=== PATIENT | male | born 1940 | race Caucasian/White ===

== ENCOUNTER → 2019-06-13 | Outpatient (CLI) | payer MEDICARE, SELFPAY ==
[2019-03-08 11:31] VITALS: BMI 27.6
--- NOTE | 2019-06-13 11:06 | CT_ITS ---
STUDY: CT ABDOMEN AND PELVIS WITH AND WITHOUT CONTRAST REASON FOR EXAM: Male, 78 years old. Gross hematuria, hemoptysis RADIATION DOSAGE (If Supplied By Facility): CTDIvol = ( 17.13 ) mGy, DLP = ( 2955.44 ) mGycm TECHNIQUE: Transaxial images were obtained from the dome of the diaphragm to the symphysis pubis without oral contrast. 100CC IV Isovue 300 was administered. Sagittal and coronal images were reconstructed. This study is limited. The dome of the diaphragm is out of the field of view and a CT scan of the chest is provided for the comparison. Individualized dose optimization techniques were used for this CT. COMPARISON: CT chest same day June 13, 2019, October 14, 2016 abdomen study. . FINDINGS: In the right lung base there is a visualized dense consolidation with right pleural fluid. The base the heart is out of the [id number] on the CT abdomen and pelvis portion however is demonstrated on the CT chest which shows borderline cardiac enlargement is small pericardial effusion and coronary calcifications. Although the superior aspect of the liver is out of the field of view on this study it is seen on the CT scan of the chest. On the CT scan of the chest performed the same day in the early arterial phase images there is visualization of peripheral focal hyperdense lesion which appears to be associated with arterial potentially venous structures which may represent a small vascular malformation. See image #[address] chest with contrast. This measures approximately 1.7 cm. The subsequent venous phase images show that this is just barely visualized. In addition on the CT chest there is a low attenuating cystic structure measuring 1.4 x 1.5 cm that is out of the field of view on this CT of the chest of the abdomen and pelvis. It appears to be a fairly well-circumscribed. In addition there is a cystic structure in the left hepatic lobe that measures 4.9 mm. Overall the liver appears somewhat hypodense the early arterial phase images. It appears less so on the delayed images. Normal gallbladder and extrahepatic biliary system. The spleen is partially visualized on the CT scan of the abdomen and partially seen on the comparison CT chest. Overall appears homogeneous. Normal pancreas. Normal bilateral adrenal glands. There are multiple punctate stones in the right kidney. There is a well-circumscribed right renal cyst measuring 1.4 cm. There is no evidence of hydronephrosis. Normal left kidney. The CT of the chest is also used to visualize the upper aspect of the stomach. It appears grossly normal. Normal small intestine. There is mild to moderate amount of stool in the colon. There is a tortuous appearance of the distal colon. There is non-visualization of the appendix. The aorta is partially calcified. Normal inferior vena cava. Normal retroperitoneum. The bladder is partially decompressed the wall is mildly thickened. There are prostatic calcifications. There is a small umbilical hernia containing fat. There is a left hip arthroplasty. There is well-corticated bony fragments posterior to the left acetabulum and greater trochanter. This is similar to the prior study October 14, 2016. There is calcification in the adductor muscles on the right. This likely represents prior trauma. There is degenerative change of the SI joints. There is multilevel spondylosis. There is multilevel disc space narrowing and endplate sclerosis. At the level of L2-L3 there is a broad disc osteophyte protrusion on the left side with moderate neural foramina narrowing moderate to severe central stenosis. At L3-L4 there is disc space narrowing broad disc osteophyte protrusion over the left side with moderate to severe neural foramina narrowing moderate central stenosis. At L4-L5 there is disc space narrowing and broad disc bulge facet arthropathy mild to moderate neural foramina narrowing without central stenosis. At L5-S1 there is robust osteophyte formation mild bilateral neural foraminal narrowing minimal central stenosis. CT/CT Abd/Pelvis W/WO Contrast IMPRESSION: The CT scan of the abdomen and pelvis is performed with a CT scan of the chest the same day. Both of these studies are utilized for this dictation as a portion of the upper abdomen is out of the [id number] on the dedicated CT scan of the abdomen and pelvis. There is a focal probable vascular lesion within the liver which may represent a AVM or vascular malformation. There at least 2 multiple hepatic cyst with benign-appearing features. Benign-appearing right renal cyst punctate calcifications right kidney no evidence of hydronephrosis. Mildly thick-walled appearance of the bladder could consider cystitis. Borderline enlargement of the prostate. Left hip arthroplasty Degenerative change thoracolumbar spine Right lower lobe pneumonia. Right pleural effusion. This was also described in the CT chest. Electronically Signed: Kiya Crawley MD at 15:41 EDT Tel , Service support ,
--- NOTE | 2019-06-13 11:20 | CT_ITS ---
STUDY: CT CHEST WITH CONTRAST REASON FOR EXAM: Male, 78 years old. Gross hemoptysis RADIATION DOSAGE (If Supplied By Facility): CTDIvol = ( 17.13 ) mGy, DLP = ( 2955.44 ) mGycm TECHNIQUE: Transaxial imaging was performed following intravenous administration of 100CC IV Isovue 300. Individualized dose optimization techniques were used for this CT. COMPARISON: None. FINDINGS: Mildly heterogeneous thyroid with several small hypodense nodules Lungs are mildly hyperinflated. There is dense patchy airspace disease and consolidation in the right lung base with effusion suggesting infection. Otherwise, the lungs are clear. Normal heart and pericardium. There are calcifications of the coronary arteries. Normal mediastinum. Normal hilar regions. Normal enhanced pulmonary arteries. Normal aorta arch and descending thoracic aorta. There are multi-level degenerative changes of the thoracic spine. Nonenhancing liver cyst; upper abdomen is otherwise within normal limits. CT/Chest WITH Contrast IMPRESSION: Right lower lobe airspace disease, consolidation with effusion. Findings are highly concerning for infection. Lungs are otherwise clear. Repeat chest CT is recommended in 3 months. Electronically Signed: Maico Pacheco DO at 12:50 EDT Tel , Service support ,
[2019-06-13 11:40] LABS: CREATININE FINGERSTICK 0.8 mg/dL (0.70-1.30); EGFR FINGERSTICK > 60.0000 mL/min (>60)
== END | disposition home or self-care (01) ==
PROVIDERS: Family Provider Family Medicine; PCP Family Medicine; Referring Provider Urology; Visit Provider Urology
DX: R31.0 Gross hematuria (principal); R04.2 Hemoptysis; Z87.442 Personal history of urinary calculi
CPT/HCPCS: 71260; 74178; Q9967

== ENCOUNTER → 2019-11-08 12:51 | Outpatient (CLI) | payer MEDICARE, SELFPAY ==
[2019-08-03 15:06] VITALS: BMI 26.7
--- NOTE | 2019-11-08 12:59 | ECHOCS_ITS ---
Reason For Study: CAD/ASHD Procedure This was a 2D Doppler, Color Flow transthoracic echocardiogram. The study was technically difficult. Contrast injection was performed. Exam performed in department. Left Ventricle Based upon the 2D echocardiographic and contrast enhanced images obtained there appears to be grossly normal left ventricular size, wall motion, and systolic function. The estimated ejection fraction is 65 %. No evidence for diastolic dysfunction. Right Ventricle Normal RV size. Normal systolic function. Atria Normal left atrium. Normal right atrium. No doppler evidence for ASD. Mitral Valve Mitral valve not well visualized. Tricuspid Valve The tricuspid valve is not well visualized. Aortic Valve Trisinus/trileaflet aortic valve. Normal aortic valve. Pulmonic Valve The pulmonic valve is not well visualized. Great Vessels Normal sized aortic root. Pericardium/Pleural Epicardial fat. Trivial pericardial effusion. There are no echocardiographic indications of cardiac tamponade. Medication 22 gauge I.V. with prn adaptor inserted into right arm. Diluted definity 5.0ml given slow IV push to enhance endocardial definition. MMode/2D Measurements & Calculations LVIDd: 4.1 cm IVSd: 1.1 cm Ao root diam: 3.5 cm LVIDs: 2.1 cm LVPWd: 1.1 cm FS: 49.3 % LAV(MOD-bp): 54.0 ml LA A4 area: 13.1 cm2 LA dimension(2D): 2.9 cm LAV(MOD-bp) Indexed: 24.9 ml/m2 LAV(MOD-sp2): 58.0 ml LAV(MOD-sp4): 32.7 ml RA A4 area: 11.2 cm2 Doppler Measurements & Calculations MV E max pravin: 47.0 cm/sec Lat Peak E' Pravin: 12.8 cm/sec Med Peak E' Pravin: 9.4 cm/sec MV A max pravin: 96.9 cm/sec E/E' lat: 3.7 E/E' med: 5.0 MV E/A: 0.48 Ao V2 max: 147.6 cm/sec LV V1 max: 124.7 cm/sec PA V2 max: 132.7 cm/sec Ao max P.7 mmHg LV V1 max P.2 mmHg Ao V2 mean: 116.6 cm/sec Ao mean P.8 mmHg Ao V2 VTI: 25.2 cm Interpretation Summary The study was technically difficult. Contrast injection was performed. Based upon the 2D echocardiographic and contrast enhanced images obtained there appears to be grossly normal left ventricular size, wall motion, and systolic function. The estimated ejection fraction is 65 %. Epicardial fat. Trivial pericardial effusion. There are no echocardiographic indications of cardiac tamponade. No evidence for diastolic dysfunction. Ordering Physician: Dragan Maher Referring Physician: Kathleen Wolfe Performed By: Jessica Grubbs RDCS, RVT
== END ==
PROVIDERS: Family Provider Family Medicine; PCP Family Medicine; Referring Provider Internal Medicine Cardiovascular Disease; Visit Provider Internal Medicine Cardiovascular Disease
DX: I25.10 Atherosclerotic heart disease of native coronary artery without angina pectoris (principal); I31.3 Pericardial effusion (noninflammatory)
CPT/HCPCS: 93306; Q9957; A4216; C8929

== ENCOUNTER → 2019-11-15 13:03 | Outpatient (CLI) | payer MEDICARE, SELFPAY ==
[2019-08-03 15:06] VITALS: BMI 26.7
--- NOTE | 2019-11-15 13:10 | CT_ITS ---
STUDY: CT CHEST WITH CONTRAST REASON FOR EXAM: Male, 79 years old. PNEUMONIA F/U COMPARE TO CT FROM 06/13/19 RADIATION DOSAGE (If Supplied By Facility): CTDIvol = ( 13.25 ) mGy, DLP = ( 471.92 ) mGycm TECHNIQUE: Transaxial imaging was performed following intravenous administration of IV 100mL Isovue-300. Multiplanar coronal and sagittal images were reformatted. Individualized dose optimization techniques were used for this CT. COMPARISON: Comparison is made with prior examination of June 13, 2019. FINDINGS: There is a 2.4 cm nodule in the left axillary region most likely representing an enlarged left axillary lymph node. This has increased in size as compared to prior study. The previously seen infiltration and pleural effusion at the right lung base as cleared. Minimal residual increased markings are seen at the lung bases suggestive of mild scarring. There is no demonstrated pleural abnormality. There are calcifications of the coronary arteries. There are multiple small lymph nodes within the mediastinum, which are normal in size and morphology most compatible with reactive lymph hyperplasia. Normal hilar regions. Normal enhanced pulmonary arteries. Normal aorta arch and descending thoracic aorta. There are multi-level degenerative changes of the thoracic spine. Small hiatal hernia. Fatty infiltration of the liver. 1.3 cm cyst in the dome of the right lobe of the liver CT/Chest WITH Contrast IMPRESSION: Enlarged left axillary lymph node. The previously seen right lower lobe infiltrate has cleared. Electronically Signed: Jared Lang, at 15:37 EST , Service support ,
[2019-11-15 13:35] LABS: CREATININE FINGERSTICK 1.1 mg/dL (0.70-1.30); EGFR FINGERSTICK > 60.0000 mL/min (>60)
== END ==
PROVIDERS: PCP Family Medicine; Referring Provider Family Medicine; Visit Provider Family Medicine
DX: J18.9 Pneumonia, unspecified organism (principal); R91.8 Other nonspecific abnormal finding of lung field
CPT/HCPCS: 71260; Q9967

== ENCOUNTER → 2019-11-28 07:50 | Outpatient (CLI) | payer MEDICARE, SELFPAY ==
[2019-08-03 15:06] VITALS: BMI 26.7
--- NOTE | 2019-11-28 07:56 | US_ITS ---
STUDY: SUPERFICIAL ULTRASOUND - LEFT AXILLARY LYMPH NODE. REASON FOR EXAM: Male, 79 years old. Follow-up lymph nodes seen on CT chest of 11/15/2019. TECHNIQUE: A superficial ultrasound was performed with real-time and static sandra-scale imaging. COMPARISON: CT chest with contrast 11/15/2019. FINDINGS: Solid hypoechoic lymphadenopathy in the left axilla is again identified. It measures 2.4 x 1.7 x 1.1 cm. My measurement of the previous lymphadenopathy is 2.8 x 2.3 x 1.9 cm. US/Ext Non Vasc Limited/Soft Tiss IMPRESSION: Persistent solid hypoechoic lymphadenopathy in the left axilla measuring 2.4 x 1.7 x 1.1 cm, previously 2.8 x 2.3 x 1.9 cm. Allowing for differences in technique, this is most likely unchanged. This is quite feasible for ultrasound-guided core biopsy or ultrasound-guided FNA. Electronically Signed: Prakash Mccarty MD at 11:02 EST , Service support ,
== END ==
PROVIDERS: PCP Family Medicine; Referring Provider Family Medicine; Visit Provider Family Medicine
DX: R59.0 Localized enlarged lymph nodes (principal)
CPT/HCPCS: 76882

== ENCOUNTER → 2020-01-23 16:25 | Outpatient (CLI) | payer MEDICARE, SELFPAY ==
--- NOTE | 2020-01-23 | IMM_PTH ---
PATIENT: ASHLEY RAYA Jr. LOC: [facility] U#:[id number] AGE/SX: 84/M ROOM: RE01/23/[address]: Dr. Neeraj Narvaez MD : 1940 BED: DIS: SPEC #: [id number] RECD: 01/25/20 11:11 STATUS: NILSA REQ #: [id number] REE: 01/23/20 00:[address]: Neeraj Narvaez DEPT: IMMUNOHISTOCHEMISTRY RECD BY: Zahra Meyers ENTERED: 01/25/20 11:14 SP TYPE: IMMUNO OTHR DR: Dr. Kathleen Wolfe DO Tissues: Axillary lymph node, NOS Procedures: BCL-2 (add) BCL-6 (add) CD10 (add) CD20 (add) CD23 (add) CD3 (add) CD43 (add) CD45 (add) CD5 (add) CD79A (add) CK8 (add) CYCLIN (add) KI-67 (add) MUM1 (add) Pankeratin (initial) PHYSICIAN & [address] [address] SPECIMEN INFORMATION: Tissue Source: Left axilla lymph node biopsy Clinical Info: Axillary lymphadenopathy Specimen Number: [id number] CPT code: 61606, 55969 x14 METHODOLOGY: Deparaffinized sections of prefer/formalin-fixed tissue or PAP/DQ stained slides are incubated with monoclonal/polyclonal antibodies/oligonucleotide probes. Localization is made via biotin free immunoperoxidase method. Appropriate controls are performed and reacted as expected. Results on target cell population are indicated in the following table: RESULTS: ANTIBODY / CLONE RESULT AE1-3 (AE1/AE3/PCK26) negative CK8 ([id number]) negative CD3 (PS1) negative CD5 (SP10) negative CD10 (56C6) positive CD20 (L26) positive CD23 (1B12) negative CD43 (L60) negative CD45 (RP2/18) positive CD79a (11E3) positive BCL-2 (bcl-2/100/D5) positive BCL-6 ([id number]/A8) positive Cyclin D1/BCL-1 (SP4) negative MUM1 (MRQ-43) negative Ki-67 (30-9) positive, moderate These tests were developed and their performance characteristics determined by [facility]. They may not have been cleared or approved by the U.S. Food and Drug Administration. The FDA has determined that such clearance or approval is not necessary. The above immunohistochemical/dualISH markers are ordered and reviewed by the Pathologist. 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 SJ:mauricio 01/26/20 Case has been reviewed in consultation with Dr. Stovall who concurs with the above diagnosis. IDC:AM
--- NOTE | 2020-01-23 13:05 | AXNB_PTH ---
PATIENT: ASHLEY RAYA Jr. LOC: [facility] U#:[id number] AGE/SX: 84/M ROOM: RE01/23/[address]: Dr. Neeraj Narvaez MD : 1940 BED: DIS: SPEC #: [id number] RECD: 01/23/20 15:47 STATUS: NILSA REQ #: [id number] REE: 01/23/20 13:[address]: Neeraj Narvaez DEPT: SURGICAL PATHOLOGY RECD BY: Aung Scott ENTERED: 01/24/20 10:20 SP TYPE: AX NODE BX OTHR DR: Dr. 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 See microscopic description and comment. SARA:mauricio 01/25/20 COMMENT Immunohistochemistry ([id number]) supports the above diagnosis. Case has been reviewed in consultation with Dr. Stovall who concurs with the above diagnosis. IDC:AM MICROSCOPIC DESCRIPTION Slides are reviewed. The specimen shows lymph tissue with complete replacement by normal lymph node architecture into multiple follicles. The follicles predominantly consist of small cleaved lymphocytes (centrocytes). Atypical large lymphocytes consists of <5 per high power field. Areas of necrosis or fibrosis are not seen. GROSS DESCRIPTION Received in fixative is one container labeled with the patient's name and designated left axillary lymph node biopsy. The specimen consists of multiple elongated pieces of guerrero soft tissue measuring in aggregate 2 x 0.3 x 0.1 cm. The specimen is totally submitted in one cassette. / SARA:mauricio 01/24/20 TC:0 CPT: 53235
[2020-01-23 13:07] VITALS: BMI 27.9
== END ==
PROVIDERS: PCP Family Medicine; Referring Provider Surgery; Visit Provider Surgery
DX: R59.0 Localized enlarged lymph nodes (principal)
CPT/HCPCS: 88305; 88341; 88342

== ENCOUNTER → 2020-10-15 07:02 | Outpatient (CLI) | payer MEDICARE, SELFPAY ==
[2020-05-10 10:59] VITALS: BMI 28.4
[2020-10-04 13:35] VITALS: BMI 28.2
--- NOTE | 2020-10-15 07:10 | CT_ITS ---
STUDY: CT ABDOMEN AND PELVIS WITH CONTRAST REASON FOR EXAM: Male, 80 years old. LYMPHOMA CHECK UP, NO TREATMENT DONE, PREV LT THR RADIATION DOSAGE (If Supplied By Facility): CTDIvol = ( 16.88 ) mGy, DLP = ( 1855.99 ) mGycm TECHNIQUE: Transaxial images were obtained from the dome of the diaphragm to the symphysis pubis without oral contrast. IV 100mL Isovue-300 was administered. Sagittal and coronal images were reconstructed. Individualized dose optimization techniques were used for this CT. COMPARISON: 02/06/2020 FINDINGS: The visualized lung bases are unremarkable. The visualized portions of the heart are within normal limits. Multiple cysts are seen in the liver the largest is in segment #8 near the dome measures 17 mm. Normal gallbladder and extrahepatic biliary system. Normal spleen. Normal pancreas. Normal bilateral adrenal glands. Bilateral kidney stones, there is 6 mm stone in the right kidney. There is 4 mm stone in left kidney without hydronephrosis. There is a cyst in the right kidney measures 2 cm. Normal visualized stomach. Normal small intestine. Normal colon. There is non-visualization of the appendix. Normal abdominal aorta. Normal inferior vena cava. There is an enlarged mesenteric lymph node in the right lower quadrant measuring 3.4 x 3.2 cm stable since earlier study. Normal urinary bladder. Normal abdominal wall. Normal osseous structures. CT/Abdomen/Pelvis W IV Cont ONLY IMPRESSION: Bilateral kidney stones, there is 6 mm stone in the right kidney. There is 4 mm stone in left kidney without hydronephrosis. There is a cyst in the right kidney measures 2 cm. There is an enlarged mesenteric lymph node in the right lower quadrant measuring 3.4 x 3.2 cm stable since earlier study. Electronically Signed: Kash Caro, at 13:46 EST Tel , Service support ,
--- NOTE | 2020-10-15 07:10 | CT_ITS ---
STUDY: CT CHEST WITH CONTRAST REASON FOR EXAM: Male, 80 years old. LYMPHOMA CHECK UP, NO TREATMENT DONE, PREV LT THR RADIATION DOSAGE (If Supplied By Facility): CTDIvol = ( 16.88 ) mGy, DLP = ( 1855.99 ) mGycm TECHNIQUE: Transaxial imaging was performed following intravenous administration of IV 100mL Isovue-300. Individualized dose optimization techniques were used for this CT. COMPARISON: 02/06/2020 FINDINGS: The lungs are normal. There is no demonstrated pleural abnormality. Normal heart and pericardium. Normal mediastinum. Normal hilar regions. Normal enhanced pulmonary arteries. Normal aorta arch and descending thoracic aorta. Normal osseous structures. There is decrease in the size of the previously described enlarged left axillary lymph node now measures 2 x 0.9 cm measured previously 2.8 x 1.9 cm. No new enlarged lymph nodes are noted. CT/Chest WITH Contrast IMPRESSION: There is decrease in the size of the previously described enlarged left axillary lymph node now measures 2 x 0.9 cm measured previously 2.8 x 1.9 cm. No new enlarged lymph nodes are noted. Electronically Signed: Kash Caro, at 14:02 EST Tel , Service support ,
[2020-10-15 07:30] LABS: Creatinine, Serum 1.06 mg/dL (0.70-1.30); EST Glomerular Filtration Rate 72 mL/min (>60); Est Glom Filt Rate - Afr Amer 87 mL/min (>60)
--- NOTE | 2020-10-15 07:38 | CT_ITS ---
STUDY: CT SOFT TISSUE NECK WITH CONTRAST REASON FOR EXAM: Male, 80 years old. LYMPHOMA CHECK UP, NO TREATMENT DONE, PREV LT THR RADIATION DOSAGE (If Supplied By Facility): CTDIvol = ( 16.88 ) mGy, DLP = ( 1855.99 ) mGycm TECHNIQUE: The patient was scanned in a multi-detector CT scanner. High resolution transaxial imaging was performed following intravenous administration of IV 100mL Isovue-300. Sagittal and coronal images were reconstructed. Individualized dose optimization techniques were used for this CT. COMPARISON: 02/06/2020. 06/13/2019 FINDINGS: Normal bilateral parotid glands. Normal bilateral real estate associate spaces. Normal bilateral parapharyngeal spaces. Normal bilateral carotid spaces. Normal bilateral sublingual and submandibular glands and spaces. Normal visualized nasopharynx. Normal retropharyngeal space. Normal perivertebral space. Normal visualized bilateral faucial tonsils. The visualized tongue, tongue base and oropharynx are normal. The visualized cervical lymph nodes (levels I-) are within normal size limits, and maintain normal morphology. There is no demonstrated solid or cystic mass lesion. There is no abnormal contrast enhancement. Normal epiglottis, bilateral vallecula and hypopharynx. The pre-epiglottic and paraglottic adipose spaces are normal. Normal visualized bilateral piriform sinuses, aryepiglottic folds, vocal cords, and arytenoid-cricoid articulations. Normal subglottic trachea. There is a nonspecific nodule in the right thyroid lobe measures 1.8 cm is stable since 06/13/2019. Normal visualized pulmonary apices. Normal visualized paranasal sinuses. Normal visualized cervical spine. CT/Soft Tissue Neck WITH Contrast IMPRESSION: There is no evidence of active neoplastic process in the soft tissues of the neck. There is a nonspecific nodule in the right thyroid lobe measures 1.8 cm is stable since 06/13/2019. Electronically Signed: Kash Caro, at 13:49 EST Tel , Service support ,
== END ==
PROVIDERS: PCP Family Medicine; Referring Provider Internal Medicine Hematology & Oncology; Visit Provider Internal Medicine Hematology & Oncology
DX: C82.00 Follicular lymphoma grade I, unspecified site (principal); C82.08 Follicular lymphoma grade I, lymph nodes of multiple sites
CPT/HCPCS: 36415; 70491; 71260; 74177; 82565; Q9967

== ENCOUNTER → 2021-04-09 06:01 | Outpatient (CLI) | payer MEDICARE, SELFPAY ==
[2021-04-03 08:29] VITALS: BMI 28.9
--- NOTE | 2021-04-09 06:06 | ART_ITS ---
Reason For Study: Claudication Procedure A bilateral lower extremity continuous wave Doppler with analog waveform analysis,segmental pressures,and ankle brachial indexes without exercise. Left Segmental Pressures Left brachial= 156mmHg. Left posterior tibial artery = 194mmHg. Left dorsalis pedis artery = 180mmHg. Left digit = 159 mmHg. The left dorsalis pedis waveforms are triphasic. The left posterior tibial artery waveforms are triphasic. Right Segmental Pressures Right brachial= 156mmHg. Right posterior tibial artery = 192mmHg. Right dorsalis pedis artery = 180mmHg. Right digit = 181 mmHg. The right dorsalis pedis waveforms are triphasic. The right posterior tibial artery waveforms are triphasic. Indices The right ankle brachial index by the dorsalis pedis is 1.15. The right ankle brachial index by the posterior tibial artery is 1.23. The right digital-brachial index is 1.16. The left ankle brachial index by the dorsalis pedis is 1.15. The left ankle brachial index by the posterior tibial artery is 1.24. The left digital-brachial index is 1.02. VL/Lower Ext Art Exam w/o Exercis Interpretation Summary Normal bilateral lower extremity DP and PT ankle-brachial indices with triphasi c dorsalis pedis and posterior tibialis Doppler waveforms Normal digital brachial indices bilaterally Ordering Physician: Ute Jones Referring Physician: Kathleen Wolfe Performed By: Denise Miller RVT
--- NOTE | 2021-04-09 07:40 | STRESSREP_ITS ---
Stress Test Report Date: 04-09-2021 Procedure: Exercise tolerance test/imaging study Indications: Chest pain; CAD; PCI Consent: Per the patient Procedure: The patient exercised on a Zafar protocol for 4 minutes and 30 seconds completing Stage I and 1 minute and 30 seconds of Stage II achieving a peak heart rate of 134 bpm (95% predicted maximal heart rate) with a peak blood pressure 178/82 mmHg and a peak MET capacity of 6 METs. The baseline ECG demonstrated sinus rhythm; right bundle branch block. The peak exercise ECG demonstrated no obvious ECG changes. There was an isolated premature ectopic complex during exercise. The functional capacity was considered average. There was no complaint of chest discomfort during exercise or recovery. The examination was discontinued secondary to dyspnea/knee pain. Impression: 1. Technically adequate (percent predicted maximal heart rate greater than 85%) exercise tolerance test 2. Peak exercise ECG continued right bundle branch block with no obvious ECG changes 3. There was an isolated premature ectopic complex during exercise 4. Nuclear images pending Myocardial perfusion imaging study: Technique: The patient was injected with 14.2 mCi of technetium 99m Cardiolite and subsequently rest SPECT Cardiolite nuclear imaging was obtained in the horizontal long, vertical long, and short axis views. The patient exercised on a Zafar protocol for 4 minutes and 30 seconds completing Stage I and 1 minute and 30 seconds of Stage II achieving a peak heart rate of 134 bpm (95% predicted maximal heart rate) with a peak blood pressure 178/82 mmHg and a peak MET capacity of 6 METs. The patient was injected with 44.4 mCi of technetium 99m Cardiolite and subsequently stress SPECT Cardiolite nuclear imaging was obtained in the horizontal long, vertical long, and short axis views. A gated Cardiolite study at peak stress was obtained. Interpretation: Rest and stress SPECT Cardiolite nuclear imaging status post realignment, normalization, and attenuation correction, demonstrates the appearance of body motion during image acquisition and on the preattenuation images following stress the appearance of diminished myocardial perfusion/tracer uptake in portions of the mid to distal inferior/inferior apical segments and on the post attenuation images following stress the appearance of diminished myocardial perfusion/tracer uptake in portions of the distal inferior/inferoapical segments. There is end systolic thickening and brightening. The gated Cardiolite study demonstrates myocardial thickening and inward wall motion. The reported LVEF is 78%. Impression: 1. Rest and stress SPECT Cardiolite nuclear imaging demonstrate the appearance of body motion during image acquisition and post-rest the appearance of diminished myocardial perfusion/tracer uptake in portions of the inferior/inferior apical segments concerning for an area of stress-induced myocardial ischemia although shifting soft tissue attenuation/artifact related to body motion during image acquisition cannot necessarily be excluded. 2. The gated Cardiolite study reports an LVEF of 78%. This note was generated with [employer] software. It may contain incorrect words, spelling, and punctuation that were not noted in checking the note before signing.
== END ==
PROVIDERS: PCP Family Medicine; Referring Provider Physician Assistant Medical; Visit Provider Physician Assistant Medical
DX: R07.9 Chest pain, unspecified (principal); I73.9 Peripheral vascular disease, unspecified
CPT/HCPCS: 78452; 93017; 93923; A9500; A4216

== ENCOUNTER → 2021-04-16 12:43 | Outpatient (CLI) | payer MEDICARE, SELFPAY ==
[2021-01-21 13:57] VITALS: BMI 28.9
[2021-04-03 08:29] VITALS: BMI 28.9
--- NOTE | 2021-04-16 12:45 | CT_ITS ---
STUDY: CT CHEST WITH CONTRAST REASON FOR EXAM: Male, 80 years old. LYMPHOMA. Follow-up examination. RADIATION DOSAGE (If Supplied By Facility): CTDIvol = ( 15.62 ) mGy, DLP = ( 1850.55 ) mGycm TECHNIQUE: Transaxial imaging was performed following intravenous administration of IV 100mL Isovue-300. Multiplanar coronal and sagittal images were reformatted. Individualized dose optimization techniques were used for this CT. COMPARISON: Comparison is made with prior examination dated 10/15/2020. FINDINGS: Stable heterogeneous enlargement of the right lobe of the thyroid gland. Small benign-appearing lateral axillary lymph nodes. The lungs are normal. There is no demonstrated pleural abnormality. There are calcifications of the coronary arteries. There are multiple small lymph nodes within the mediastinum, which are normal in size and morphology most compatible with reactive lymph hyperplasia. Normal hilar regions. Normal enhanced pulmonary arteries. Normal aorta arch and descending thoracic aorta. There are multi-level degenerative changes of the thoracic spine. There is no demonstrated abnormality of the visualized upper abdomen. CT/Chest WITH Contrast IMPRESSION: Interval decrease in size of the left axillary lymph node. Electronically Signed: Jared Lang MD at 15:11 EDT , Service support ,
--- NOTE | 2021-04-16 12:45 | CT_ITS ---
STUDY: CT ABDOMEN AND PELVIS WITH CONTRAST REASON FOR EXAM: Male, 80 years old. LYMPHOMA. Follow-up. RADIATION DOSAGE (If Supplied By Facility): CTDIvol = ( 15.62 ) mGy, DLP = ( 1850.55 ) mGycm TECHNIQUE: Transaxial images were obtained from the dome of the diaphragm to the symphysis pubis without oral contrast. IV 100mL Isovue-300 was administered. Sagittal and coronal images were reconstructed. Individualized dose optimization techniques were used for this CT. COMPARISON: Comparison is made with prior examination dated 10/15/2020. FINDINGS: Stable mild degree of linear scarring at the lung bases. Coronary artery calcification. Stable 1.27 m cyst in the upper medial aspect of the right lobe of the liver. Questionable sludge or tiny gallstones along the dependent portion of the gallbladder lumen. Normal spleen. Normal pancreas. Normal bilateral adrenal glands. Punctate calculus in the lower pole calyx of the left kidney. 6 mm calculus in the midpole calyx of the right kidney. Stable small cyst in the lateral aspect of the right kidney. Nonobstructive calculus in the lower pole calyx of the left kidney. Normal visualized stomach. Normal small intestine. Normal colon. The appendix is visualized and appears normal. There is diffuse atherosclerotic calcification of the abdominal aorta, without a demonstrated aneurysm. Normal inferior vena cava. Normal retroperitoneum. The previously seen lymph node in the mesentery in the right lower quadrant has decreased in size. It presently measures 2.2 cm x 2.2 cm. Normal urinary bladder. There are prostatic calcifications. Normal abdominal wall. There are diffuse degenerative changes of the visualized lumbar spine. Status post left total hip replacement. CT/Abdomen/Pelvis W IV Cont ONLY IMPRESSION: Interval decrease in size of the lymph nodes seen in the mesenteric fat in the right lower quadrant. It presently measures 2.2 cm x 2.2 cm. Electronically Signed: Jared Lang MD at 15:07 EDT , Service support ,
--- NOTE | 2021-04-16 12:45 | CT_ITS ---
STUDY: CT SOFT TISSUE NECK WITH CONTRAST REASON FOR EXAM: Male, 80 years old. LYMPHOMA. Follow-up. RADIATION DOSAGE (If Supplied By Facility): CTDIvol = ( 15.62 ) mGy, DLP = ( 1850.55 ) mGycm TECHNIQUE: The patient was scanned in a multi-detector CT scanner. High resolution transaxial imaging was performed following intravenous administration of IV 100mL Isovue-300. Sagittal and coronal images were reconstructed. Individualized dose optimization techniques were used for this CT. COMPARISON: Comparison is made with prior examination dated 10/15/2020. FINDINGS: Normal bilateral parotid glands. 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 Normal bilateral parapharyngeal spaces. Normal bilateral carotid spaces. Normal bilateral sublingual and submandibular glands and spaces. Normal visualized nasopharynx. Normal retropharyngeal space. Normal perivertebral space. Normal visualized bilateral faucial tonsils. The visualized tongue, tongue base and oropharynx are normal. The visualized cervical lymph nodes (levels I-) are within normal size limits, and maintain normal morphology. There is no demonstrated solid or cystic mass lesion. There is no abnormal contrast enhancement. Normal epiglottis, bilateral vallecula and hypopharynx. The pre-epiglottic and paraglottic adipose spaces are normal. Normal visualized bilateral piriform sinuses, aryepiglottic folds, vocal cords, and arytenoid-cricoid articulations. Normal subglottic trachea. Mildly enlarged and heterogeneous appearance of the right lobe of the thyroid. Normal visualized pulmonary apices. Normal visualized paranasal sinuses. There is multilevel degenerative changes of the cervical spine. CT/Soft Tissue Neck WITH Contrast IMPRESSION: Stable examination. No evidence of a cervical lymphadenopathy. Electronically Signed: Jared Lang MD at 15:18 EDT , Service support ,
[2021-04-16 13:05] LABS: CREATININE FINGERSTICK 0.9 mg/dL (0.70-1.30); EGFR FINGERSTICK > 60.0000 mL/min (>60)
== END ==
PROVIDERS: PCP Family Medicine; Referring Provider Internal Medicine Hematology & Oncology; Visit Provider Internal Medicine Hematology & Oncology
DX: C82.00 Follicular lymphoma grade I, unspecified site (principal)
CPT/HCPCS: 70491; 71260; 74177; Q9967

== ENCOUNTER 2021-05-14 08:55 | Day surgery (SDC) | payer MEDICARE, SELFPAY ==
[2021-04-03 08:29] VITALS: BMI 28.9
[2021-04-30 12:57] VITALS: BMI 29.0
[2021-04-30 13:57] LABS: Hematocrit 43.7 % (40-54); Hemoglobin 14.2 g/dL (13.0-16.5); Mean Corp Hgb Conc 32.5 g/dL (32-36); Mean Corpuscular Hgb 29.4 pg (27.0-32.0); Mean Corpuscular Volume 90.5 fL (80-94); Mean Platelet Vol. 8.8 fl (6.2-12.0); Platelet Count 201 K/mm3 (150-450); RBC Distribution Width CV 15.2 % (11.6-14.6); RBC Distribution Width SD 51.3 fl (35.1-43.9); Red Blood Count 4.83 M/mm3 (4.6-6.2); White Blood Count 5.7 K/mm3 (4.4-11.0)
[2021-04-30 14:06] LABS: International Normalized Ratio 1.1; Prothrombin Time (Protime)PT. 13.4 SECONDS (11.7-14.9)
[2021-04-30 14:07] LABS: Partial Thromboplast Time 28.6 Seconds (24.1-36.2)
[2021-04-30 14:23] LABS: Anion Gap 3 (5-15); BUN 21 mg/dL (7-18); BUN/Creat Ratio 22.2 RATIO (10-20); Calcium,Total 8.8 mg/dL (8.5-10.1); Chloride 109 mmol/L (98-107); Creatinine, Serum 0.94 mg/dL (0.70-1.30); EST Glomerular Filtration Rate 82 mL/min (>60); Est Glom Filt Rate - Afr Amer 99 mL/min (>60); Glucose 101 mg/dL (74-106); Potassium 4.3 mmol/L (3.5-5.1); Sodium Level 141 mmol/L (136-145)
--- NOTE | 2021-05-06 08:45 | PCM.HP.BLA ---
History and Physical Date of Admission: 05/14/21 [facility] [id number] [place], [place] [phone] OFFICE VISITDate of Service: 04/03/21 MR#:[id number]: ASHLEY RAYA Jr.Rep #:[id number]:1940 Provider: JOSE Back/Sex: 80/M [facility]igned HPI HPI History of Present Illness Details: ASHLEY RAYA, is a 80 year old white male who presents to the office today for a cardiovascular outpatient follow-up with a history of coronary artery disease status post drug-eluting stent ?2 to proximal LAD and drug-eluting stent to proximal RCA in September 2016 and PVCs. He also has a history of lymphoma. Pt notes that he occasionally he chest discomfort. It comes and goes. It is not brought on by anything in particular. It is not always with exercise. He does find that he he is more fatigued than last year. He finds that he may be more SOB than last year. He does occasionally have lightheadedness/dizziness. He does not have any palpitations. He does have joint pain. He does not have any edema. 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: No Accompanied by: None Is patient in pain?: No Allergies No Known Allergies Allergy (Verified 04/03/21 08:25) Medications aspirin 81 mg tablet,delayed release 81 mg PO DAILY 03/08/19 [History Confirmed 04/03/21] finasteride 5 mg tablet 5 mg PO DAILY 08/03/19 [History Confirmed 04/03/21] montelukast 10 mg tablet 10 mg PO QPM 08/03/19 [History Confirmed 04/03/21] tamsulosin 0.4 mg capsule 0.8 mg PO DAILY 30 Days #60 cap 08/03/19 [History Confirmed 04/03/21] fluticasone propionate 50 mcg/actuation nasal spray,suspension 2 spray INTRANASAL DAILY 01/19/20 [History Confirmed 04/03/21] lisinopril 5 mg tablet 5 mg PO DAILY #90 tab 07/12/20 [Rx Confirmed 04/03/21] clopidogrel 75 mg tablet 75 mg PO DAILY #30 tab 09/19/20 [Rx Confirmed 04/03/21] metoprolol tartrate 25 mg tablet 25 mg PO BID #180 tab 01/01/21 [Rx Confirmed 04/03/21] atorvastatin 80 mg tablet See Rx Instructions .ROUTE .COMPLEX #90 tablet 01/22/21 [Rx Confirmed 04/03/21] albuterol sulfate 90 mcg/actuation aerosol inhaler gm INHALATION 04/03/21 [History Confirmed 04/03/21] nitroglycerin 0.4 mg sublingual tablet 0.4 mg SUBLINGUAL Q5M PRN #25 tab 04/03/21 [Rx Confirmed 04/03/21] omeprazole 40 mg capsule,delayed release 40 mg PO DAILY cap 04/03/21 [History Confirmed 04/03/21] [facility] Medical History (Updated 04/03/21 @ 09:04 by Ute GARCIA, PA) Atherosclerosis of makah coronary artery of makah heart without angina pectoris Presence of stent in coronary artery (~10/01/16) PVC (premature ventricular contraction) Right ureteral calculus Surgical History History of arthroscopic knee surgery History of left hip replacement Presence of coronary angioplasty implant and graft (~10/01/16) Family History Mother Pancreas cancer Father Lung cancer Other Cancer Social History Smoking Status: Former smoker alcohol intake: current alcohol intake frequency: 0-2 drinks per day Alcohol type: beer caffeine: Yes Type: coffee Number of servings: 3 and tea ROS Const Const: Positive for fatigue; Negative for weakness, headache(s), frequent falls, excessive sweating, weight gain or weight loss Eyes Eyes: Negative for blind spots, loss of peripheral vision, transient loss of vision, blurry vision, change in vision or double vision ENT ENT: Negative for headache(s), dizziness, tinnitus, Nosebleed/epistaxis or balance problems Cardio Chest Pain: Yes Palpitations: No Edema: None Muscle aches with walking: None Resp Respiratory: Positive for SOB with activity; Negative for SOB at rest, SOB orthopnea\SOB lying down or Cough GI GI: Negative nausea, vomiting, heartburn, bloating, vomiting blood/hematemesis, bright, red blood in stools or black,tarry stools : Negative for hematuria Musc Musc: Positive for muscle aches/ myalgia and joint pain; Negative for muscle weakness or balance problems Skin Skin: Negative rash or wounds Neuro Neuro: Negative for dizziness, lightheadedness, near syncope, syncope, orthostatic symptoms, frequent falls, headache(s), weakness, confusion, memory loss, restless legs, blurry vision or double vision Brad Hematologic/Lymphatic: Negative for easy bleeding or easy bruising Endo Endo: Positive for fatigue; Negative for cold intolerance, heat intolerance or excessive sweating Psych Psych: Negative for anxiety or depression Allergy Allergy/Immunology: Negative for rash Cardiology Exam Const Appearance: cooperative, healthy appearing, comfortable, no acute distress and well developed Orientation: alert, awake and oriented x3 Head Head: normal to inspection Ears: hearing grossly normal bilaterally Nose: external nose normal Face and Sinus: face symmetric Mouth: oral mucosae normal, lip normal and moist mucous membranes Eyes General: appearance normal, both eyes and all related structures Eyelids: eyelids normal Conjunctivae: conjunctivae normal Pupils: PERRL EOM: EOM intact bilaterally Neck Neck: normal visual inspection and trachea midline; Negative no JVD Carotids: Negative bruit Chest Chest inspection: normal inspection of the chest Auscultation: Bilateral: Clear to Auscultation Cardio Palpation: normal PMI Rate: regular rate Rhythm: regular rhythm Heart sounds: S1 normal and S2 normal; Negative rub, gallop or murmur GI GI: soft, no hepatosplenomegaly and bowel sounds present Neuro General: patient alert, patient awake, patient oriented x3 and CN's II-XI intact bilaterally Extremities Pulses: Normal: Left Posterior Tibial Pulse, Right Radial Pulse and Left Radial Pulse and Diminished: Right Posterior Tibial Pulse Lower Extremity Edema: None: Bilateral Psych Psychological: normal affect Assessment and Plan Assessment and Plan (1) Atherosclerosis of makah coronary artery of makah heart without angina pectoris: Status: Chronic Comment: S/P drug-eluting stenting to LAD and RCA in September 2016; Plan - Ute GARCIA PA: Patient does have some chest discomfort that could be concerning for angina. It has been 4 years since he has had a stress test done. Would like to obtain an nuclear exercise stress test to further evaluate for ischemia. For now he will continue with his aspirin, and atorvastatin, Plavix, lisinopril and metoprolol. (2) Claudication of both lower extremities: Status: Acute Orders: Orders: Lower Ext Art Exam w/o Exercis Today Plan - Ute GARCIA PA: Patient does note pain in his muscles when he walks. This is worsened over the last year. He does have diminished pulses in the right. Would like to obtain lower extremity arterial study to further evaluate. Plan Details Other Medications: New: nitroglycerin 0.4 mg sublingual Q5M PRN 25 tabs 3RF Chest Pain Other Orders: Orders: Nuclear Stress Test - Treadmil Today R07.9 Follow Up: 9 Months (PFM) Coding Level of Care Code Off vis,est,level 4 Diagnoses Atherosclerosis of makah coronary artery of makah heart without angina pectoris I25.10 Claudication of both lower extremities I73.9 Coding Level of Care Code Off vis,est,level 4 Diagnoses Atherosclerosis of makah coronary artery of makah heart without angina pectoris I25.10 Claudication of both lower extremities I73.9 Supplemental Info Supplemental Information Echocardiogram from 11/08/2019: Interpretation Summary The study was technically difficult. Contrast injection was performed. Based upon the 2D echocardiographic and contrast enhanced images obtained there appears to be grossly normal left ventricular size, wall motion, and systolic function. The estimated ejection fraction is 65 %. Epicardial fat. Trivial pericardial effusion. There are no echocardiographic indications of cardiac tamponade. No evidence for diastolic dysfunction. Stress Test Report: Date: 07/30/2017 Procedure: Exercise tolerance test/nuclear imaging study Indications: Shortness of breath/dyspnea; CAD; PCI; abnormal ECG Consent: Per the patient Procedure: The patient underwent exercise on a Zafar protocol for 6 minutes 30 seconds completing stage II and 30 seconds of stage III achieving a peak heart rate of 133 bpm (91% predicted maximal heart rate) with a peak blood pressure 142/84 mmHg and a peak MET capacity of approximately 8 MET's. The baseline ECG demonstrated normal sinus rhythm with a right IVCD pattern. The peak exercise ECG demonstrated somatic/motion artifact with continued right IVCD pattern. There was an isolated PVC during exercise. The functional capacity was considered average. The patient had no complaint of chest discomfort during exercise recovery. The examination was discontinued secondary to dyspnea. Impression: 1. Technically adequate (percent predicted maximal heart rate greater than 85%) exercise tolerance test 2. Peak exercise ECG was somatic/motion artifact with continued right IVCD pattern 3. Isolated PVC during exercise 4. Nuclear images pending Myocardial perfusion imaging study: Technique: The patient was injected with 14.0 mCi of technetium 99m Cardiolite and subsequently rest SPECT Cardiolite nuclear imaging was obtained in the horizontal long, vertical long, and short axis views. The patient underwent exercise on a Zafar protocol for 6 minutes 30 seconds completing stage II and 30 seconds of stage III achieving a peak heart rate of 133 bpm (91% predicted maximal heart rate) with a peak blood pressure 142/84 mmHg and a peak MET capacity of approximately 8 MET's. The patient was injected with 44.7 mCi of Retail Branch Manager 99m Cardiolite and subsequently stress SPECT Cardiolite nuclear imaging was performed in the horizontal long, vertical long, and short axis views. A gated Cardiolite study at peak stress was obtained. Interpretation: Rest and stress SPECT Cardiolite nuclear imaging status post realignment, normalization, and attenuation correction appears to demonstrate relative uniform tracer uptake and myocardial perfusion appearing within normal limits. There are no myocardial perfusion deficits appreciated on the resting or stress polar map images. There is end systolic thickening and brightening. The gated Cardiolite study demonstrates myocardial thickening and inward wall motion. The reported LVEF is 76%. Impression: 1. Rest and stress SPECT Cardiolite nuclear imaging demonstrating myocardial perfusion appearing within normal limits. 2. The gated Cardiolite study reports an LVEF of 76%. Cardiac cath: 09/30/2016 Final impression: 1. Elevated left ventricular end-diastolic pressure compatible with decreased diastolic compliance 2. Left ventricle: A. Normal left ventricular size, wall motion, and systolic function B. Estimated LVEF is 65% 3. Left main coronary artery: A. Angiographically normal 4. Left anterior descending coronary artery: A. Proximal moderate to severe diffuse calcification B. Proximal 95% hazy discrete eccentric appearing stenosis hollowed by a 25-50% eccentric appearing stenosis C. Remainder of the LAD with diffuse minimal luminal irregularities 5. Left circumflex coronary artery: A. Proximal 25-50% eccentric hazy appearing stenosis near the takeoff of the obtuse marginal branch B. Remainder of the vessel with minimal luminal irregularities 6. Intermediate ramus coronary artery: A. Minimal luminal irregularities 7. Right coronary artery: A. Large dominant vessel B. Proximal 25% eccentric appearing stenosis followed by 85% hazy long appearing stenosis C. Mid to distal 25% eccentric appearing stenosis 8. Mitral valve: A. Scalloping compatible with mild mitral valve prolapse Holter monitor from April 2016 minimum heart rate 60 bpm, maximum heart rate 112 bpm, average heart rate 88 bpm, and no ventricular runs Labs: No Data to Display Diagnostics: No Data to Display Pulmonary: No Data to Display 04/03/21 0932<Electronically signed by Ute GARCIA>Date Ute GARCIA Cosigner Signature:Date (if applicable) CC: Dr. Kathleen Wolfe, DO ~ Addendum: The patient has undergone additional evaluation with an exercise tolerance test / nuclear imaging study on 04/09/2021. The results are as noted below. [facility] [id number] [place] [address] MR#: [id number]:ASHLEY RAYA Jr.Rep #:[id number]: 1940 80From:Dragan Maher MDPrimary Care: Dr. Kathleen Wolfe, DOStatus: SARA Enrique Dr: Ute Jones PASex: Stress Test Report Date: 04-09-2021 Procedure: Exercise tolerance test/imaging study Indications: Chest pain; CAD; PCI Consent: Per the patient Procedure: The patient exercised on a Zafar protocol for 4 minutes and 30 seconds completing Stage I and 1 minute and 30 seconds of Stage II achieving a peak heart rate of 134 bpm (95% predicted maximal heart rate) with a peak blood pressure 178/82 mmHg and a peak MET capacity of 6 METs. The baseline ECG demonstrated sinus rhythm; right bundle branch block. The peak exercise ECG demonstrated no obvious ECG changes. There was an isolated premature ectopic complex during exercise. The functional capacity was considered average. There was no complaint of chest discomfort during exercise or recovery. The examination was discontinued secondary to dyspnea/knee pain. Impression: 1. Technically adequate (percent predicted maximal heart rate greater than 85%) exercise tolerance test 2. Peak exercise ECG continued right bundle branch block with no obvious ECG changes 3. There was an isolated premature ectopic complex during exercise 4. Nuclear images pending Myocardial perfusion imaging study: Technique: The patient was injected with 14.2 mCi of technetium 99m Cardiolite and subsequently rest SPECT Cardiolite nuclear imaging was obtained in the horizontal long, vertical long, and short axis views. The patient exercised on a Zafar protocol for 4 minutes and 30 seconds completing Stage I and 1 minute and 30 seconds of Stage II achieving a peak heart rate of 134 bpm (95% predicted maximal heart rate) with a peak blood pressure 178/82 mmHg and a peak MET capacity of 6 METs. The patient was injected with 44.4 mCi of technetium 99m Cardiolite and subsequently stress SPECT Cardiolite nuclear imaging was obtained in the horizontal long, vertical long, and short axis views. A gated Cardiolite study at peak stress was obtained. Interpretation: Rest and stress SPECT Cardiolite nuclear imaging status post realignment, normalization, and attenuation correction, demonstrates the appearance of body motion during image acquisition and on the preattenuation images following stress the appearance of diminished myocardial perfusion/tracer uptake in portions of the mid to distal inferior/inferior apical segments and on the post attenuation images following stress the appearance of diminished myocardial perfusion/tracer uptake in portions of the distal inferior/inferoapical segments. There is end systolic thickening and brightening. The gated Cardiolite study demonstrates myocardial thickening and inward wall motion. The reported LVEF is 78%. Impression: 1. Rest and stress SPECT Cardiolite nuclear imaging demonstrate the appearance of body motion during image acquisition and post-rest the appearance of diminished myocardial perfusion/tracer uptake in portions of the inferior/inferior apical segments concerning for an area of stress-induced myocardial ischemia although shifting soft tissue attenuation/artifact related to body motion during image acquisition cannot necessarily be excluded. 2. The gated Cardiolite study reports an LVEF of 78%. This note was generated with [employer] dictation software. It may contain incorrect words, spelling, and punctuation that were not noted in checking the note before signing. 04/09/21 0856<Electronically signed by Dragan Maher MD>Date Dragan Maher MD CC: JOSE Jones; Dr. Kathleen Wolfe, DO ~Date Dictated:04/09/2140Date Transcribed: 04/09/21739Transcriptionist:Kory Based upon the patient's clinical course and the results of his noninvasive study further evaluation with diagnostic cardiac catheterization was recommended. The procedures and risks were discussed. He agreed to this approach. The surgeon/proceduralist and patient have discussed in detail the risk of exposure to and/or potential harm posed by the COVID-19 virus with having a surgery/procedure at this time versus the risk of delaying the surgery/procedure. It is not possible to know either the risk of delaying the surgery or procedure or chance of getting an infection with perfect accuracy, but a joint decision was made between the patient and the surgeon/proceduralist to proceed at this time with the scheduled surgery/procedure as indicated on the consent form. I have re-examined the patient. There are no clinical changes since date of exam.
[2021-05-13 09:39] VITALS: BMI 28.7
--- NOTE | 2021-05-14 11:28 | CL.D_ITS ---
Patient Name: ASHLEY RAYA Study Date: 05/14/2021 Performing: Dragan Maher MD Ht: 72.04 inches 183 cm : 1940 Wt: 211.64 lbs 96 kg Age: 80 Gender: male BSA: 2.18 PROCEDURE(S) PERFORMED IL66-MNS/COR/LV CLINICAL PROFILE AND INDICATIONS Indications: Suspected CAD Heart Failure: None Stress/Imaging Date: 04/09/2021tress Test with SPECT MPI: Positive Intermediate Risk Angina Classification Anginal Classification w/in 2 Weeks: Anginal Equivalent Dyspnea CAD Presentations: Other: chest pain; dyspnea on exertion; fatigue CONCLUSIONS Elevated Left Ventricular End Diastolic Pressure Normal LV size, wall motion,and systolic function LVEF: by LV gram 65 % [place] Multivessel CAD LAD: stent: patent LCX: c/w the previous cardiac cath from 09/30/2016: no significant change RCA: stent: patent RECOMMENDATIONS Risk factor modification Medical therapy Case discussed / reviewed with Dr. Posada of Interventional Cardiology DESCRIPTION OF PROCEDURE The patient arrived to the procedure lab. The risks and benefits of the procedure as well as a full d escription of our services here and current unavailability of surgical backup were fully explained to the patient and/or their significant other prior to the catheterization. The Timeout was completed, verifying the correct patient and procedure. The patient's procedural site was prepped and draped in the usual fashion. Local anesthetic was given subcutaneously to right radial region with Lidocaine 2% - dr. posada. Using a modified Seldinger technique, arterial access was obtained via the right ra dial artery, a 6Fr sheath was inserted. - dr posada Left Coronary Artery selective angiography wa s performed in multiple views using a 5 Fr. 4.0 [place] catheter. Right Coronary Artery selective angio graphy was then performed in multiple views using a 5 Fr. 4.0 [place] catheter. Left Ventriculography w as performed in SALAZAR projection using a 5 Fr. Pigtail catheter. LV to AO pullback pressures were then recorded.The arterial sheath was pulled and a TR Band was applied for hemostasis - 10cc air CORONARY ANGIOGRAPHY DOMINANCE: Right Dominant LEFT HEART ASSESSMENT Left Ventricular Ejection Fraction: by LV Gram 65 % Normal LV wall motion Elevated Left Ventricular End Diastolic Pressure LVEDP: 19 mmHg LEFT MAIN: Mild calcification LEFT ANTERIOR DESCENDING ARTERY: PROX LAD: Severe calcification, Previously placed stent is patent with mild luminal irregularities MID LAD: Mild luminal irregularities CIRCUMFLEX ARTERY: PROX CIRC: 25 - 50 % Stenosis RAMUS: Mild luminal irregularities RIGHT CORONARY ARTERY: PROX RCA: Previously placed stent is patent MID RCA: Mild luminal irregularities DISTAL RCA: 25 % Stenosis AORTIC ROOT: Angiographically normal COMPLICATIONS No Complications PROCEDURE MEDICATIONS Fentanyl 50 mcg IV Versed 1 mg IV Oxygen: 2 L/min via nasal cannula Heparin given IA 05/14/2021 10:46:46 Verapamil 2.5mg, Ntg 100mcgs, 3000 units of Heparin given IA 05/14/2021 10:46:46 SUMMARY OF HEMODYNAMIC DATA Time AIR REST ECG 09:30:29 AO 168/71 (106) SA 10:44:12 AO 103/68 (87) 10:51:29 LV 141/1, 22 10:56:32 LV 145/0, 19 10:56:38 LV 137/5, 25 10:57:39 LV 140/6, 24 10:57:45 LVp 139/5, 24 10:57:52 AOp 121/64 (89) 10:57:57 AO 150/66 (98) 10:59:05 Signed By Dragan Maher MD On 05/14/2021 11:28:22 Dragan Mahre MD
== END 2021-05-14 12:45 | disposition home or self-care (01) ==
PROVIDERS: PCP Family Medicine; Referring Provider Internal Medicine Cardiovascular Disease; Visit Provider Internal Medicine Cardiovascular Disease
DX: I25.10 Atherosclerotic heart disease of native coronary artery without angina pectoris (principal); R07.9 Chest pain, unspecified; R06.09 Other forms of dyspnea; Z79.02 Long term (current) use of antithrombotics/antiplatelets; Z85.72 Personal history of non-Hodgkin lymphomas; Z95.5 Presence of coronary angioplasty implant and graft; Z87.891 Personal history of nicotine dependence; Z79.82 Long term (current) use of aspirin; Z79.899 Other long term (current) drug therapy
CPT/HCPCS: 36415; 80048; 85027; 85610; 85730; 93458; 99152; 99153; J7040; Q9967; C1769; C1894

== ENCOUNTER → 2023-03-27 | Outpatient (CLI) | payer MEDICARE, SELFPAY ==
--- NOTE | 2023-03-27 14:30 | CT_ITS ---
EXAM: CT RIGHT LOWER EXTREMITY WITHOUT INTRAVENOUS CONTRAST CLINICAL INDICATION: OSTEOARTHRITIS OF KNEE TECHNIQUE: Helically acquired images were obtained of the right lower extremity without intravenous contrast. 2-D reformats were performed by the technologist. CTDIvol = ( 18.76 ) mGy, DLP = ( 1436.86 ) mGycm This CT exam was performed using one or more of the following dose reduction techniques: automated exposure control, adjustment of the mA and/or kV according to patient size, and/or use of iterative reconstruction technique. COMPARISON: No relevant prior studies available. FINDINGS: BONES/JOINTS: Moderate osteoarthrosis involving the right hip. Degenerative changes of the pubic symphysis. Medial and lateral meniscal chondrocalcinosis. Moderate to severe tricompartmental osteoarthrosis of the knee, worse at the patellofemoral compartment. Small to moderate suprapatellar joint effusion is likely degenerative. Large ossification at the proximal plantar aponeurosis. Tiny posterior calcaneal enthesophyte. Degenerative changes at the subtalar and tibiotalar joint. Remote trauma involving the medial malleolus. No acute fracture. No subluxation. Normal alignment. No osteochondral lesions at the tibiotalar articulation. No significant tibiotalar joint effusion. SOFT TISSUES: Unremarkable. No soft tissue swelling or gas. No radiopaque foreign body. CT/Extremity Lower without Contra IMPRESSION: 1. Preoperative planning study. 2. Moderate to severe tricompartmental osteoarthrosis of the knee, worse at the patellofemoral compartment. 3. Ancillary findings as above. Electronically Signed: Keny Sanford MD at 21:31 EDT ,
== END | disposition home or self-care (01) ==
LOC: CT 14:07
PROVIDERS: PCP Family Medicine; Referring Provider Orthopaedic Surgery; Visit Provider Orthopaedic Surgery
DX: M17.0 Bilateral primary osteoarthritis of knee (principal)
CPT/HCPCS: 73700

== ENCOUNTER 2023-04-06 15:33 | Observation (INO) | payer MEDICARE, SELFPAY ==
[2023-03-27 15:05] LABS: Magnesium 2.1 mg/dL (1.6-2.6)
[2023-04-06] VITALS (13 sets, daily range): BP systolic 103–139; BP diastolic 51–83; PULSE 60–84; RESP 16–18; TEMP 36.3–37; O2SAT 94–100; BMI 28.8
--- NOTE | 2023-04-06 | KNEE_PTH ---
PATIENT: ASHLEY RAYA Jr. LOC: MS3 U#:[id number] AGE/SX: 82/M ROOM: AK324 RE04/06/[address]: Dr. Darrion Hu DO : 1940 BED: 1 DIS: 04/07/2023 SPEC #: [id number] RECD: 04/06/23 13:52 STATUS: NILSA RE[place] #: [id number] REE: 04/06/23 00:[address]: Darrion Hu DEPT: SURGICAL PATHOLOGY RECD BY: Aung Scott ENTERED: 04/06/23 13:53 SP TYPE: TOTAL KNEE OTHR DR: MD Dr. Kathleen Lopez DO Tissues: Knee, NOS Procedures: Decalcification bone/plaque Surgery Specimen Level IV HEADER OPERATION: OXANAS, total knee replacement robotic arm assist PRE-OP DIAGNOSIS: Osteoarthritis right knee TISSUE SUBMITTED: Bone and soft tissue right knee MICROSCOPIC DIAGNOSIS Bone and tissue of right knee, total knee resection: Severe degenerative joint disease. Mild synovial hyperplasia. AM:mauricio 04/09/2023 MICROSCOPIC DESCRIPTION Slides are reviewed. GROSS DESCRIPTION Received is one container designated bone and soft tissue right knee. The specimen consists of multiple fragments of guerrero-yellow bone measuring in aggregate 17.0 x 15.0 x 2.2 cm. Also in the specimen container are multiple fragments of yellow-white soft tissue measuring in aggregate 9.0 x 5.5 x 2.0 cm. A number of bony fragments contain articular surfaces consistent with tibial plateau and femoral condyle and displaying prominent osteophyte formation, eburnation and bone erosion. Wrapper Layer And Examiner Soft Work sections are submitted in two cassettes as follows: 1 - soft tissue, 2 - bone after decalcification. / AM:mauricio 04/06/2023 :5 [facility]: [id number], [id number]
[2023-04-06] MEDS: Magnesium 1 GM over 15 mins IV (09:30)
[2023-04-06] MEDS: Gabapentin 600 MG Tablet PO (09:54)
[2023-04-06] MEDS: Acetaminophen 500 MG Tablet 1000 MG PO ×3 (09:54→23:22)
[2023-04-06] MEDS: Lactated Ringers 1,000 ML 15 ML IV ×2 (09:59→12:31)
[2023-04-06 10:30] LABS: Bedside Glucose 111 mg/dL (74-106)
[2023-04-06] MEDS: Cefazolin 2 GM in 0.9% Normal Saline 100 ML IV (11:07)
[2023-04-06] MEDS: JPS (Morphine 10mg/ml) OPERA.SITE (12:15)
--- NOTE | 2023-04-06 12:40 | PCM.OPRPT ---
Report of Operation Date of Procedure: 04/06/23 Pre-Operative Diagnosis: OA right knee Post-Operative Diagnosis: same Surgery/Procedure Performed:: Right TKR Description of Surgical Findings:: Report of Operation Date of Procedure: 04/06/2023 Preoperative Diagnosis: [ right ] knee primary osteoarthritis Postoperative Diagnosis: [right ] knee primary osteoarthritis Operation: Robotic Assisted Knee Total Arthroplasty, [right ] knee Surgeon: Dr Darrion Hu DO Executive Office Manager: Jules Booker PA-C Anesthesia: spinal Anesthesiologist: Kyrie Guerra M.D. Findings: Stable knee with good patella tracking Specimen(s): Bony cuts Complications: No intraoperative complications Estimated Blood Loss: 30 cc IV Fluids: 1000 cc crystalloid Implants Used: 1. Jessenia Triathlon press-fit CR size 6 femur 2. [place]hill Triathlon size 6 tibia 3. 38 mm patella 4. 9 mm CS polyethylene Brief History Operative Indications: [ (82 y/o male) ] with history of [right ] knee osteoarthrosis with radiographic findings with loss of joint space, osteophyte formation and subchondral sclerosis. Failed conservative measures as mentioned in the H&P. Discussion of total knee arthroplasty as well as risk and benefits were discussed with the patient including but not limited to blood loss, DVTs, PEs, neurovascular damage, general risk of anesthesia including loss of life, and stiffness or instability were also discussed with the patient. Patient demonstrated understanding and was able to sign informed consent. Procedure: On the date of procedure, patient's [ right ] lower extremity was marked in the preoperative area. The patient was then taken back to the operating room where that patient was placed on the table in the supine position. All bony prominences were identified and well-padded. Anesthesia assumed control of the C-spine and airway throughout the remainder of the procedure. A tourniquet was placed on the [right ] upper thigh and the leg was prepped in a sterile fashion. The surgeon then scrubbed at this time. Upon reentering the room, the [right ] lower extremity was draped in a standard orthopedic fashion. A timeout was then called and everyone agreed upon the side, the site, the procedure to be performed, patient's identity and antibiotics given. Esmarch bandage was used to exsanguinate the extremity and the tourniquet was placed up to 250 mmHg with the knee in flexion. A midline skin incision was made and a sharp dissection was taken down through skin, subcutaneous tissue and fat. The standard medial parapatellar incision was made and the patella was subluxed laterally. An appropriate deep MCL release was done and the fat pad was resected. Our attention was then directed to the patella. The patella was everted and a flat resection was made. The knee was then flexed up and 2 femoral pins were placed inside the incision and 2 tibial pins were placed outside the incision in the medial tibia bicortically. Once this was completed, the 2 checkpoints in the femur and tibia were placed. Knee was then flexed up and the bony landmarks were registered. Once the was completed, the knee taken through range of motion and manually stressed allowing us to plan for an appropriate tibial cut. The robotic arm was brought into the field sterilely and checkpoint and saw were registered. Based on the patient's deformity, the tibial cut was made in [2 degrees varus ]. At this time, the tensioner was then placed in the joint and ligament tension was checked at 90 degrees and full extension. Based on the patient's ligamentous tension, appropriate adjustments were made to the operative plan and ligament releases were done. Once we were happy with our operative plan with balanced flexion and extension gaps, our attention was directed to the femur. The robot was brought into the field sterilely and registered. Posterior condylar cuts, anterior chamfer cuts and anterior cuts were appropriately made for a [size 6 ] femur. When these were completed, the saws were switched out in the distal femoral and posterior chamfer cuts were made. Protecting the soft tissue throughout this time. A [size 6 ] base plate was selected. The knee was flexed to 90 degrees and soft tissues and posterior osteophytes were removed from the joint. 40 cc of the periarticular injection was injected into the posterior medial corner of the joint. The appropriate trials were then placed on the femur and tibia. A trial polyethylene was trialed to ensure proper balancing and stability of the knee. The appropriate tibial internal rotation was then marked with a bovie. Our attention was then directed to the patella. The lug holes were drilled and the patella trial was placed. Patellar tracking was checked and deemed appropriate. Once we were happy, lug holes were drilled for the femur and trial components were removed. The tibia was subluxed and pinned into place and the keel was punched and drilled appropriately. Final components were verified and opened. The wound was copiously irrigated with normal saline. The components were impacted into place with the tibia, femur and finally the patella. The trial poly component was placed and the knee was placed in full extension. The tracking, alignment and balance were verified and a [ 9 mm CS ] polyethylene component was placed. Once the final components were placed an Irrisept lavage was performed and the wound was copiously irrigated with normal saline solution and the periarticular injection was given. the wound was closed in a layer-restrepo fashion using #1 vicryl interrupted sutures for the arthrotomy, 2-0 interrupted vicryl suture for the subcuticular layer and debbie for final skin closure. A sterile compressive dressing was then placed. The patient was then awakened from anesthesia, transferred to the [place] and transferred to the PACU for recovery. My physician front desk assistant was a vital part of this case. He was important in appropriate retraction during the case, and protection of soft tissues during bony cuts. His intimate knowledge of the case and my steps aided in safe and expedient completion of the procedure as well as appropriate position of the leg during the case. He was also vital in assisting with closure under my direct supervision. Due to the complexity of this case, robotic arm was used to assist in the surgery to improve accuracy and clinical outcomes. Post-op Plan: DVT ppx; ASA 81 mg BID, thigh high compression stockings Follow up: in office in 2 weeks for wound check PT: to start POD #0 at hospital, outpatient PT should be arranged. Preoperative antibiotic: Ancef 2 grams IV Darrion Hu DO Surgeon: Darrion Hu steel detailer: Jules Booker Type of Anesthesia: Spinal Anesthesiologist: Kyrie Guerra Estimated Blood Loss (mL): 30 cc Fluids Replaced: 1000 cc crystalloid Admit VTE Documentation VTE Present on Admission: No VTE Mechan Device Prophylaxis: SCD's and Thigh High MARIA ELENA Hose VTE Pharm Prophylaxis ordered?: Yes
--- NOTE | 2023-04-06 13:30 | RAD_ITS ---
EXAM: XR RIGHT KNEE, 1 OR 2 VIEWS CLINICAL INDICATION: post op -- AP and Lateral xray of operative knee in PACU TECHNIQUE: Frontal and/or lateral views of the right knee. COMPARISON: No relevant prior studies available. FINDINGS: BONES/JOINTS: There is no fracture or dislocation. There is anatomic alignment. Total knee arthroplasty. Soft tissue edema. Skin debbie are seen along the anterior midline aspect of the knee. There is an air-fluid level seen in the suprapatellar region. Joint space is preserved. Subcutaneous air is noted. No sclerotic or destructive changes observed. SOFT TISSUES: See above. RAD/Knee 1 or 2 Views IMPRESSION: Successful total knee arthroplasty. Electronically Signed: Gregor Cosme MD at 14:20 EDT ,
[2023-04-06] MEDS: Lactated Ringers 1,000 ML 125 ML IV (13:46)
[2023-04-06] MEDS: Finasteride 5 MG Tablet PO (17:36)
[2023-04-06] MEDS: Aspirin 81 MG TAB.CHEW PO (17:37)
[2023-04-06] MEDS: Clopidogrel Bisulfate 75 MG Tablet PO (17:37)
[2023-04-06] MEDS: Sertraline 50 MG Tablet 25 MG PO (17:37)
[2023-04-06] MEDS: Pantoprazole Sodium 40 MG Tablet PO (17:37)
[2023-04-06] MEDS: oxyCODONE 5 MG Tablet PO (18:54)
[2023-04-06] MEDS: Cefazolin 1 GM/50 ML BAG IV (18:55)
[2023-04-06] MEDS: Metoprolol Tartrate 25 MG Tablet PO (23:21)
[2023-04-06] MEDS: Tamsulosin HCl 0.4 MG Capsule PO (23:21)
[2023-04-06] MEDS: Atorvastatin Calcium 80 MG Tablet PO (23:21)
[2023-04-06] MEDS: Montelukast 10 MG Tablet PO (23:22)
[2023-04-06] MEDS: Senna/Docusate Sodium 1 Tablet 2 TABLET PO (23:22)
[2023-04-07] VITALS (7 sets, daily range): BP systolic 111–130; BP diastolic 60–76; PULSE 57–64; RESP 16; TEMP 36.4–36.6; O2SAT 96–100
[2023-04-07] MEDS: 0.9% Saline Lock 10 ML Syringe IV (03:09)
[2023-04-07] MEDS: Cefazolin 1 GM/50 ML BAG IV (03:09)
[2023-04-07 05:18] LABS: Hematocrit 34.1 % (40-54); Hemoglobin 11.4 g/dL (13.0-16.5); Mean Corp Hgb Conc 33.4 g/dL (32-36); Mean Corpuscular Hgb 29.5 pg (27.0-32.0); Mean Corpuscular Volume 88.3 fL (80-94); Mean Platelet Vol. 9.1 fl (6.2-12.0); Platelet Count 181 K/mm3 (150-450); RBC Distribution Width CV 15.4 % (11.6-14.6); RBC Distribution Width SD 50.4 fl (35.1-43.9); Red Blood Count 3.86 M/mm3 (4.6-6.2); White Blood Count 13.3 K/mm3 (4.4-11.0)
[2023-04-07] MEDS: Acetaminophen 500 MG Tablet 1000 MG PO ×2 (05:31→13:56)
--- NOTE | 2023-04-07 05:57 | NURSING ---
OSKRA WRAP REMOVED PER ORDER
[2023-04-07 06:04] LABS: Anion Gap 3 (5-15); BUN 19 mg/dL (7-18); Calcium,Total 8.3 mg/dL (8.5-10.1); Chloride 108 mmol/L (98-107); Creatinine, Serum 0.73 mg/dL (0.70-1.30); EST Glomerular Filtration Rate 109 mL/min (>60); Est Glom Filt Rate - Afr Amer 132 mL/min (>60); Estimated Creatinine Clearance 63.59 ml/min; Glucose 114 mg/dL (74-106); Potassium 4.2 mmol/L (3.5-5.1); Sodium Level 139 mmol/L (136-145)
--- NOTE | 2023-04-07 07:27 | PCM.PN.ORT ---
Subjective Subjective Patient is s/p right sided total knee arthroplasty with Dr. Hu. Patient resting comfortably in bed. Rates pain 8/ 10 at rest. With movement 8/10. States taking Tylenol and oxycodone and ice help to relieve pain. Patient has been up with therapy. Walking with the assit of a walker. Afebrile, no chest pain, shortness of breath, negative calf pain/ erythema, and no other signs of DVT. Objective Data Objective Data Vital Signs: Vital Signs Temp Pulse Resp BP Pulse Ox O2 Del Method O2 Flow Rate 98 F 57 L 16 111/60 96 Room Air 2 04/07/23 06:33 04/07/23 06:33 04/07/23 06:33 04/07/23 06:33 04/07/23 06:33 04/07/23 06:33 04/06/23 15:37 Oxygen Flow Rate (L/min) 2 Oxygen Delivery Method Room Air Weight: 96.4 kg Body Mass Index (BMI) 28.8 Intake & Output: Intake and Output for Last 24 Hours 04/05/23 04/06/23 04/07/23 23:59 23:59 23:59 Intake Total 3762 / 3762 73.5 / 73.5 Balance 3762 / 3762 73.5 / 73.5 Lab / Micro Data Result Diagrams: 04/07/23 04:58 04/07/23 04:58 Labs: Laboratory Results - last 24 hr 04/06/23 10:01: POC Glucose 111 H 04/07/23 04:58: WBC 13.3 H, RBC 3.86 L, Hgb 11.4 L, Hct 34.1 L, MCV 88.3, MCH 29.5, MCHC 33.4, RDW Std Deviation 50.4 H, RDW Coeff of Marvin 15.4 H, Plt Count 181, MPV 9.1 04/07/23 04:58: Sodium 139, Potassium 4.2, Chloride 108 H, Carbon Dioxide 28.0, Anion Gap 3 L, BUN 19 H, Creatinine 0.73, Estim Creat Clear Calc 63.59, Est GFR (MDRD) Af Amer 132, Est GFR (MDRD) Non-Af 109, BUN/Creatinine Ratio 26.0 H, Glucose 114 H, Calcium 8.3 L Micro: Microbiology 06/09/23 14:15 Swab (Method) Nasal Screen MRSA/MSSA - Final Radiography Diagnostic Testing: Radiology Impression Knee X-Ray 04/06/23 13:30 IMPRESSION: Successful total knee arthroplasty. Electronically Signed: Gregor Cosme MD at 14:20 EDT Reading Location ID and State: [facility] / [place] , Service support , Physical Exam Narrative Right lower extremity patient resting comfortably in bed No signs of acute distress Satting well on room air Limb is warm to touch, Sensation intact throughout entire lower extremity, including saphenous, sural, superficial and deep peroneal, and tibial distribution. DP/PT pulses bounding. Dorsiflexion plantarflexion strength 5/5 Dressing clear dry intact Calf nontender to palpation, no erythema, no edema. Negative Homans Assessment & Plan Assessment/Plan (1) S/P total knee arthroplasty: PLAN: 1. Will continue PT today. Weightbearing as tolerated 2. plan for discharge home today following PT 3. Patient will follow up for post op appointment in 2 weeks as previously scheduled 4. Patient has outpatient PT appointment as previously scheduled 5. WBC 13.3 acute reactive leukocytosis: secondary to pre operative decadron. no acute systemic signs of infection. will monitor, and likely self resolve. 6. H/H 11.4/34.1: post operavtive anemia secondary to acute blood loss intraoperatively. Patient is asymptomatic at this time. No intraoperative complications. will continue to monitor. no acute interventions. 7. DVT prophylaxis : He is resuming his Plavix 75 mg once daily and aspirin 81 mg BID for DVT prophylaxis 8. Pain control: patient instructed to take tylenol 500mg 2 tablets TID. and oxycodone 1-2 tablets every 4-6 hours only as needed for pain control. 9. ok to remove post op dressing. post op day 5
[2023-04-07] MEDS: Aspirin 81 MG TAB.CHEW PO (07:56)
[2023-04-07] MEDS: Finasteride 5 MG Tablet PO (07:57)
[2023-04-07] MEDS: Clopidogrel Bisulfate 75 MG Tablet PO (07:57)
[2023-04-07] MEDS: Metoprolol Tartrate 25 MG Tablet PO (07:57)
[2023-04-07] MEDS: Tamsulosin HCl 0.4 MG Capsule PO (07:57)
[2023-04-07] MEDS: Pantoprazole Sodium 40 MG Tablet PO (07:58)
[2023-04-07] MEDS: Lisinopril 5 MG Tablet PO (07:58)
[2023-04-07] MEDS: Senna/Docusate Sodium 1 Tablet 2 TABLET PO (07:58)
[2023-04-07] MEDS: Sertraline 50 MG Tablet 25 MG PO (07:58)
[2023-04-07] MEDS: Ergocalciferol 1.25 MG (50, 000 UNIT) Capsule PO (08:03)
--- NOTE | 2023-04-07 09:40 | CASEMGMT ---
Addendum entered by Thalia Tidwell 04/07/23 11:16: TC to [facility], pt is set [facility] for [facility]. TC to [facility], spoke with Aylin, pt has appt tomorrow at 1:30 and needs to arrive at 1:15p. Placed on dc instructions and pt notified as pt will be returning home. Original Note: VIOLETA CUEVA Assessment: Face to Face with pt for initial transition planning/care coordination assessment. VIOLETA CUEVA introduced self and role at [facility], pt voices understanding and consents to assessment. Pt is A/O x4 and answers all questions appropriately at this time. Pt sitting up in chair just finishing with PT. Care providers, pharmacy, and demographics verified/updated. Admitting Dx: R total knee with rosendo PCP:Yaneth Specialists:Fritz, ortho; Oscar, uro; Russell, derm; [facility], cardio Preferred Pharmacy: [facility] Insurance: [employer] [facility] Prescription Benefit: yes LNOK: Vanessa Catherine, Living Arrangements: Pt lives with in a 2 story home with 2 steps to enter without a rail. Pt reports he was I in ADL's prior to surgery and he assists with the care of his . He states his 's sister is visiting and staying for a couple of weeks at the patient's home. Transportation: Pt drives self and denies concerns with transportation. Pt or neighbor will transport pt post surgery. DME/HHC/SNF: Pt has a FWW and BSC at home. Pt denies hx of HHC or SNF stays. Pt states he has concerns for his safety returning home and the need to care for . He states 's sister cannot assist him. Pt states he wants to go to [facility] Rehab unit. Pt is aware that his insurance will need to approve this. Pt states he may be interested in private paying if they decline pending the cost. He does have outpt therapy set up but states this needs cancelled. Pt states no further concerns/needs. Updated SW. Advised pt to ask CM if any further question/concerns/needs arise, voices understanding. Pt Goal: [facility] Rehab Unit Plan: Rehab Unit vs SNF vs Home
--- NOTE | 2023-04-07 11:00 | CASEMGMT ---
Social Work SW received referral for Inpatient Rehab. SW met with pt and informed that pt's insurance will likely not approve stay for Inpatient Rehab given diagnosis and pt functional ability with therapy. SW did discuss SNF placement vs return home with pt and a list of SNF providers including quality and resource use data and consistent with the patient?s preferred geographic region, medical needs, and insurance network were provided from the [employer] Guide. After consideration of options, pt choosing to return home with out patient PT. Pt is uncertain where and when appointment is scheduled. RNCM updated and will call [facility] concerning appointment and notify pt. MYA Moore
--- NOTE | 2023-04-07 12:03 | DCINST_ITS ---
Discharge Instructions Diet Discharge Diet: No restrictions Activity Discharge Activity: Return to Normal Activity Weight Bearing Status: Weight bearing as tolerated Dressing / Incision Call your doctor if your incision/area has: Continuous Slow Oozing, Sudden Increased Bleeding, Increased Pain/ Swelling, Increased Redness, Foul Smelling Discharge and Swelling at the incision site Call your doctor if you observe: Fever of 101 or Higher, Dizziness, Chest pain and Calf discomfort Remove Dressing in: 5 days Cleanse incision/area with: Soap & Water Follow Up Care When: [facility] as previously scheduled Test Results: Test results from this visit will be discussed in further detail at your follow- up appointment, if applicable. Discharge Plan Admission Admit Date/Time: 04/06/23 15:33 Attending Provider: Darrion Hu Primary Care Provider: Kathleen Wolfe Consulting Providers: Juan Calle Discharge Orders/Prescriptions Prescriptions: New acetaminophen 500 mg Tablet 1,000 mg PO Q8 Qty: 180 0RF aspirin 81 mg Tablet,Chewable 81 mg PO BIDCM Qty: 60 0RF oxycodone 5 mg Tablet 5 - 10 mg PO .4-6hours prn PRN (Reason: Pain Score 4-10) 7 Days Qty: 56 0RF Continued tamsulosin 0.4 mg capsule 0.4 mg PO BID 30 Days Qty: 60 finasteride 5 mg tablet 5 mg PO DAILY montelukast 10 mg tablet 10 mg PO QPM omeprazole 40 mg capsule,delayed release(DR/EC) 40 mg PO DAILY nitroglycerin 0.4 mg tablet, sublingual 0.4 mg sublingual Q5M PRN (Reason: Chest Pain) Qty: 25 3RF sertraline 25 mg tablet 25 mg PO DAILY clopidogrel 75 mg tablet 75 mg PO DAILY Qty: 90 3RF Label Comments: 5 DAYS PRIOR TO PROCEDURE STOP MED atorvastatin 80 mg tablet 80 mg PO DAILY Qty: 90 3RF cholecalciferol (vitamin D3) 1,250 mcg (50,000 unit) capsule 1,250 mcg PO .2 TIMES WEEKLY lisinopril 5 mg tablet 5 mg PO DAILY Qty: 90 4RF Hold Instructions: Order Changed metoprolol tartrate 25 mg tablet 25 mg PO BID Qty: 180 3RF Held aspirin [Adult Aspirin Regimen] 81 mg tablet,delayed release (DR/EC) 81 mg PO DAILY Hold Instructions: Resume on 05/07/23. Referrals / Follow Up: Kathleen Wolfe DO [Primary Care Provider] - Disposition Disposition (needs filled in before D/C Order can be placed): Home, Self Care
--- NOTE | 2023-04-07 14:50 | PHA.DC.MR ---
Pharmacy Service has performed discharge medication reconciliation for this patient. The patient's discharge medication list was reviewed for discrepancies and discrepancies were resolved. Medication education papers prepared, counseled attempted x3 but patient was discharged. Home Medications aspirin 81 mg tablet,delayed release (Adult Aspirin Regimen) 81 mg PO DAILY 03/08/19 finasteride 5 mg tablet 5 mg PO DAILY 08/03/19 montelukast 10 mg tablet 10 mg PO QPM 08/03/19 tamsulosin 0.4 mg capsule 0.4 mg PO BID 30 days #60 caps 08/03/19 nitroglycerin 0.4 mg sublingual tablet 0.4 mg sublingual Q5M PRN Chest Pain #25 tabs 04/03/21 omeprazole 40 mg capsule,delayed release 40 mg PO DAILY 04/03/21 sertraline 25 mg tablet 25 mg PO DAILY 02/26/22 lisinopril 5 mg tablet 5 mg PO DAILY #90 tabs 10/02/22 metoprolol tartrate 25 mg tablet 25 mg PO BID #180 tabs 02/08/23 atorvastatin 80 mg tablet 80 mg PO DAILY #90 TABLETS 02/13/23 clopidogrel 75 mg tablet 75 mg PO DAILY #90 tabs 02/13/23 cholecalciferol (vitamin D3) 1,250 mcg (50,000 unit) capsule 1,250 mcg PO .2 TIMES WEEKLY 03/25/23 acetaminophen 500 mg tablet 1,000 mg PO Q8 #180 tabs 04/07/23 aspirin 81 mg chewable tablet 81 mg PO BIDCM #60 tabs 04/07/23 oxycodone 5 mg tablet 5 - 10 mg PO .4-6hours prn PRN Pain Score 4-10 7 days #56 tabs 04/07/23
== END 2023-04-07 15:00 | disposition home or self-care (01) ==
LOC: SDC 15:59 → MS3 15:59
PROVIDERS: Anesthesiology; Admitting Provider Orthopaedic Surgery; PCP Family Medicine; Referring Provider Orthopaedic Surgery; Visit Provider Orthopaedic Surgery
PROC: 0SRC0JZ Replacement of Right Knee Joint with Synthetic Substitute, Open Approach (ICD-10-PCS; CPT 27447; principal; 2023-04-06 11:05)
DX: M17.11 Unilateral primary osteoarthritis, right knee (principal); Z79.899 Other long term (current) drug therapy; Z79.02 Long term (current) use of antithrombotics/antiplatelets; F32.A Depression, unspecified; E78.00 Pure hypercholesterolemia, unspecified; I10 Essential (primary) hypertension; Z86.718 Personal history of other venous thrombosis and embolism; K21.9 Gastro-esophageal reflux disease without esophagitis; M21.161 Varus deformity, not elsewhere classified, right knee
CPT/HCPCS: 27447; S2900; 01402; 64447; 36415; 73560; 80048; 82962; 83735; 85027; 87081; 88305; 88311; 94668; 96365; 96366; 97110; 97116; 97162; 97166; 97530; 99221; 99406; C1776; J7050; J7120; A4216; G0378; J2405; J3475

== ENCOUNTER → 2023-09-08 | Outpatient (CLI) | payer MEDICARE, SELFPAY ==
--- NOTE | 2023-09-08 13:00 | CT_ITS ---
CT LEFT LOWER EXTREMITY WITH 3-D IMAGING CLINICAL INDICATION: Left knee pain. TECHNIQUE: Axial CT images of the left lower extremity (including left hip, left knee, and left ankle) was performed without IV contrast material. Coronal and sagittal reformats were provided. 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 There is heterotopic ossification adjacent to the hip prosthesis. There is mild pubic symphysis arthrosis. There is tricompartment degenerative arthrosis, most severe in the patellofemoral and medial femorotibial compartments. There are small ossific fragments located inferior to the medial malleolus, probably the sequelae of old avulsion injuries. No lytic or blastic osseous masses. Soft Tissues: There is a small to moderate knee joint effusion. The deep soft tissue structures are otherwise unremarkable. The superficial soft tissues are unremarkable without evidence of edema, hematoma, or foreign body. CT/Extremity Lower without Contra IMPRESSION: Tricompartment degenerative arthrosis of the left knee, most severe in the patellofemoral and medial femorotibial compartments. Small to moderate left knee joint effusion. Electronically Signed: Jemal Burgos MD at 14:45 EST ,
== END | disposition home or self-care (01) ==
PROVIDERS: PCP Family Medicine; Referring Provider Orthopaedic Surgery; Visit Provider Orthopaedic Surgery
DX: M17.12 Unilateral primary osteoarthritis, left knee (principal); M21.162 Varus deformity, not elsewhere classified, left knee
CPT/HCPCS: 73700

== ENCOUNTER 2023-09-28 13:42 | Observation (INO) | payer MEDICARE, SELFPAY ==
[2023-09-08 13:16] LABS: International Normalized Ratio 1.3; Prothrombin Time (Protime)PT. 16.7 SECONDS (11.7-14.9)
[2023-09-08 13:17] LABS: Partial Thromboplast Time 28.3 Seconds (24.1-36.2)
[2023-09-08 13:20] LABS: Hemoglobin A1c 5.2 % (3.8-5.6)
[2023-09-08 13:31] LABS: AST(SGOT) 11 U/L (15-37); Alanine Aminotransfer ALT/SGPT 16 U/L (16-61); Albumin, Serum 3.7 g/dL (3.2-5.0); Alkaline Phosphatase 67 U/L (45-117); Bilirubin, Direct 0.37 mg/dL (0.00-0.30); Globulin 3.3 g/dL (2.2-4.2)
[2023-09-28] VITALS (18 sets, daily range): BP systolic 104–154; BP diastolic 47–94; PULSE 57–78; RESP 12–18; TEMP 36.1–36.7; O2SAT 96–100; BMI 29.4
[2023-09-28] MEDS: Magnesium 1 GM over 15 mins IV (07:42)
[2023-09-28] MEDS: Lactated Ringers 1,000 ML 15 ML IV (07:43)
[2023-09-28] MEDS: Gabapentin 600 MG Tablet PO (07:43)
[2023-09-28] MEDS: Acetaminophen 500 MG Tablet 1000 MG PO ×2 (07:43→21:24)
[2023-09-28 08:24] LABS: Bedside Glucose 99 mg/dL (74-106)
--- NOTE | 2023-09-28 10:00 | KNEE_PTH ---
PATIENT: ASHLEY RAYA Jr. LOC: MS3 U#:[id number] AGE/SX: 82/M [place] [facility] [place]: Dr. Darrion Hu DO : 1940 BED: 1 DIS: 09/29/2023 SPEC #: [id number] RECD: 09/28/23 13:27 STATUS: NILSA MENDEZIndio #: [id number] REE: 09/28/23 10:[address]: Darrion Hu DEPT: SURGICAL PATHOLOGY RECD BY: Rebecca Nix ENTERED: 09/28/23 13:43 SP TYPE: TOTAL KNEE OTHR DR: MD Dr. Kathleen Rivera DO Tissues: Knee, NOS Procedures: Decalcification bone/plaque Surgery Specimen Level IV HEADER OPERATION: OXANAS, total knee replacement robotic arm assist PRE-OP DIAGNOSIS: Left knee osteoarthritis TISSUE SUBMITTED: Left knee bone and tissue MICROSCOPIC DIAGNOSIS Bone and tissue of left knee, total knee resection: Severe degenerative joint disease. Polarizable crystals consistent with pseudogout. AM:mauricio 10/01/2023 MICROSCOPIC DESCRIPTION Slides are reviewed. GROSS DESCRIPTION Received is one container designated bone and soft tissue left knee. The specimen consists of multiple fragments of guerrero-yellow bone measuring in aggregate 12.0 x 11.0 x 4.0 cm. Also in the specimen container are multiple fragments of yellow-white soft tissue (fibrocartilaginous tissue) measuring in aggregate 7.0 x 4.0 x 1.5 cm. A number of bony fragments contain articular surfaces consistent with tibial plateau and femoral condyle and displaying prominent osteophyte formation, eburnation and bone erosion. Lithograph Operator sections are submitted in two cassettes as follows: 1 - soft tissue, 2 - bone after decalcification. / SJ:mauricio 09/28/2023 TC:5 CPT: 72435, 79539
[2023-09-28] MEDS: Lactated Ringers 1,000 ML 999 ML IV ×2 (10:25→13:10)
[2023-09-28] MEDS: Cefazolin 3 GM in 0.9% Normal Saline (100mL Bag) 100 ML IV (10:30)
[2023-09-28] MEDS: TXA in NS 100ml (Placed in Wound) OPERA.SITE (12:04)
[2023-09-28] MEDS: JPS (Morphine 10mg/ml) OPERA.SITE (12:15)
--- NOTE | 2023-09-28 12:25 | PCM.OPRPT ---
Report of Operation Date of Procedure: 09/28/23 Pre-Operative Diagnosis: OA left knee Post-Operative Diagnosis: same Surgery/Procedure Performed:: Left TKR Description of Surgical Findings:: Report of Operation Date of Procedure: 09/28/2023 Preoperative Diagnosis: [Left ] knee primary osteoarthritis Postoperative Diagnosis: [Left ] knee primary osteoarthritis Operation: Robotic Assisted Knee Total Arthroplasty, [Left ] knee Surgeon: Dr Darrion Hu DO Real Estate Management Specialist: Kiarra Joshua PA-C Anesthesia: Spinal Anesthesiologist: Kyrie Guerra M.D. Findings: Stable knee with good patella tracking Specimen(s): Bony cuts Complications: No intraoperative complications Estimated Blood Loss: 20 cc IV Fluids: 1000 cc crystalloid Implants Used: 1. Jessenia Triathlon press fit CR size 6 femur 2. Thayer Triathlon size 7 tibia 3. 35 mm patella 4. 9 mm CS polyethylene Brief History Operative Indications: [ (82 y/o male) ] with history of [left ] knee osteoarthrosis with radiographic findings with loss of joint space, osteophyte formation and subchondral sclerosis. Failed conservative measures as mentioned in the H&P. Discussion of total knee arthroplasty as well as risk and benefits were discussed with the patient including but not limited to blood loss, DVTs, PEs, neurovascular damage, general risk of anesthesia including loss of life, and stiffness or instability were also discussed with the patient. Patient demonstrated understanding and was able to sign informed consent. Procedure: On the date of procedure, patient's [ left ] lower extremity was marked in the preoperative area. The patient was then taken back to the operating room where that patient was placed on the table in the supine position. All bony prominences were identified and well-padded. Anesthesia assumed control of the C-spine and airway throughout the remainder of the procedure. A tourniquet was placed on the [left ] upper thigh and the leg was prepped in a sterile fashion. The surgeon then scrubbed at this time. Upon reentering the room, the [left ] lower extremity was draped in a standard orthopedic fashion. A timeout was then called and everyone agreed upon the side, the site, the procedure to be performed, patient's identity and antibiotics given. Esmarch bandage was used to exsanguinate the extremity and the tourniquet was placed up to 250 mmHg with the knee in flexion. A midline skin incision was made and a sharp dissection was taken down through skin, subcutaneous tissue and fat. The standard medial parapatellar incision was made and the patella was subluxed laterally. An appropriate deep MCL release was done and the fat pad was resected. Our attention was then directed to the patella. The patella was everted and a flat resection was made. The knee was then flexed up and 2 femoral pins were placed inside the incision and 2 tibial pins were placed outside the incision in the medial tibia bicortically. Once this was completed, the 2 checkpoints in the femur and tibia were placed. Knee was then flexed up and the bony landmarks were registered. Once the was completed, the knee taken through range of motion and manually stressed allowing us to plan for an appropriate tibial cut. The robotic arm was brought into the field sterilely and checkpoint and saw were registered. Based on the patient's deformity, the tibial cut was made in [ 2 degrees varus ]. At this time, the tensioner was then placed in the joint and ligament tension was checked at 90 degrees and full extension. Based on the patient's ligamentous tension, appropriate adjustments were made to the operative plan and ligament releases were done. Once we were happy with our operative plan with balanced flexion and extension gaps, our attention was directed to the femur. The robot was brought into the field sterilely and registered. Posterior condylar cuts, anterior chamfer cuts and anterior cuts were appropriately made for a [size 6 ] femur. When these were completed, the saws were switched out in the distal femoral and posterior chamfer cuts were made. Protecting the soft tissue throughout this time. A [size 7 ] base plate was selected. The knee was flexed to 90 degrees and soft tissues and posterior osteophytes were removed from the joint. 40 cc of the periarticular injection was injected into the posterior medial corner of the joint. The appropriate trials were then placed on the femur and tibia. A trial polyethylene was trialed to ensure proper balancing and stability of the knee. The appropriate tibial internal rotation was then marked with a bovie. Our attention was then directed to the patella. The lug holes were drilled and the patella trial was placed. Patellar tracking was checked and deemed appropriate. Once we were happy, lug holes were drilled for the femur and trial components were removed. The tibia was subluxed and pinned into place and the keel was punched and drilled appropriately. Final components were verified and opened. The wound was copiously irrigated with normal saline. The components were impacted into place with the tibia, femur and finally the patella. The trial poly component was placed and the knee was placed in full extension. The tracking, alignment and balance were verified and a [ 9 mm ] polyethylene component was placed. Once the final components were placed an Irrisept lavage was performed and the wound was copiously irrigated with normal saline solution and the periarticular injection was given. the wound was closed in a layer-restrepo fashion using #1 vicryl interrupted sutures for the arthrotomy, 2-0 interrupted vicryl suture for the subcuticular layer and debbie for final skin closure. A sterile compressive dressing was then placed. The patient was then awakened from anesthesia, transferred to the [facility] and transferred to the PACU for recovery. My physician resident care assistant was a vital part of this case. He was important in appropriate retraction during the case, and protection of soft tissues during bony cuts. His intimate knowledge of the case and my steps aided in safe and expedient completion of the procedure as well as appropriate position of the leg during the case. He was also vital in assisting with closure under my direct supervision. Due to the complexity of this case, robotic arm was used to assist in the surgery to improve accuracy and clinical outcomes. Post-op Plan: DVT ppx; ASA 81 mg BID, thigh high compression stockings Follow up: in office in 2 weeks for wound check PT: to start POD #0 at hospital, outpatient PT should be arranged. Preoperative antibiotic: Ancef 2 grams IV Darrion Hu DO Surgeon: Darrion Hu district fire management officer: Kiarra Joshua Type of Anesthesia: Spinal Estimated Blood Loss (mL): 20 cc Fluids Replaced: 1000 cc crystalloid Admit VTE Documentation VTE Present on Admission: No VTE Mechan Device Prophylaxis: SCD's and Thigh High MARIA ELENA Hose VTE Pharm Prophylaxis ordered?: Yes
--- NOTE | 2023-09-28 13:10 | RAD_ITS ---
STUDY: X-RAY - LEFT KNEE REASON FOR EXAM: Male, 82 years old. Post op -- AP and Lateral xray of operative knee in PACU TECHNIQUE: 2 view(s) of the knee. COMPARISON: None. FINDINGS: Normal visualized distal femur. Normal visualized proximal tibia and fibula. Normal proximal tibiofibular articulation. Normal and the patient is status post total knee replacement. There is good alignment. Postoperative soft tissue changes. RAD/Knee 1 or 2 Views IMPRESSION: Status post total knee replacement. There is good alignment. Postoperative soft tissue changes. Electronically Signed: Jared Lang MD at 13:43 EST ,
[2023-09-28] MEDS: oxyCODONE 5 MG Tablet PO (19:00)
[2023-09-28] MEDS: 0.9% Saline Lock 10 ML Syringe IV (21:13)
[2023-09-28] MEDS: Metoprolol Tartrate 25 MG Tablet PO (21:25)
[2023-09-28] MEDS: Senna/Docusate Sodium 1 Tablet 2 TABLET PO (21:25)
[2023-09-28] MEDS: Montelukast 10 MG Tablet PO (21:26)
[2023-09-28] MEDS: Atorvastatin Calcium 80 MG Tablet PO (21:26)
[2023-09-28] MEDS: Tamsulosin HCl 0.4 MG Capsule PO (21:26)
[2023-09-29] MEDS: oxyCODONE 5 MG Tablet PO ×3 (03:29→14:46)
[2023-09-29 03:35] VITALS: BP 100/44; PULSE 62; RESP 18; TEMP 36.8; O2SAT 97
[2023-09-29] MEDS: Acetaminophen 500 MG Tablet 1000 MG PO ×2 (06:35→13:38)
[2023-09-29 07:26] VITALS: BP 115/87; PULSE 70; RESP 18; TEMP 36.7; O2SAT 98
[2023-09-29] MEDS: Aspirin 81 MG TAB.CHEW PO ×2 (07:32→16:25)
[2023-09-29] MEDS: Finasteride 5 MG Tablet PO (07:32)
[2023-09-29] MEDS: Tamsulosin HCl 0.4 MG Capsule PO (07:32)
[2023-09-29 08:36] LABS: Hematocrit 36.4 % (40-54); Hemoglobin 11.7 g/dL (13.0-16.5); Mean Corp Hgb Conc 32.1 g/dL (32-36); Mean Corpuscular Hgb 28.9 pg (27.0-32.0); Mean Corpuscular Volume 89.9 fL (80-94); Mean Platelet Vol. 9.8 fl (6.2-12.0); Platelet Count 193 K/mm3 (150-450); RBC Distribution Width CV 16.7 % (11.6-14.6); RBC Distribution Width SD 55.6 fl (35.1-43.9); Red Blood Count 4.05 M/mm3 (4.6-6.2); White Blood Count 7.8 K/mm3 (4.4-11.0)
[2023-09-29 09:08] LABS: Anion Gap 3 (5-15); BUN 20 mg/dL (7-18); BUN/Creat Ratio 22.4 RATIO (10-20); Calcium,Total 8.9 mg/dL (8.5-10.1); Chloride 111 mmol/L (98-107); Creatinine, Serum 0.89 mg/dL (0.70-1.30); EST Glomerular Filtration Rate 87 mL/min (>60); Est Glom Filt Rate - Afr Amer 105 mL/min (>60); Estimated Creatinine Clearance 71.45 ml/min; Glucose 101 mg/dL (74-106); Potassium 4.5 mmol/L (3.5-5.1); Sodium Level 140 mmol/L (136-145)
[2023-09-29 10:05] VITALS: PULSE 70
[2023-09-29] MEDS: Pantoprazole Sodium 40 MG Tablet PO (10:05)
[2023-09-29] MEDS: Loratadine 10 MG Tablet PO (10:05)
[2023-09-29] MEDS: Metoprolol Tartrate 25 MG Tablet PO (10:05)
[2023-09-29] MEDS: Senna/Docusate Sodium 1 Tablet 2 TABLET PO (10:05)
[2023-09-29] MEDS: Clopidogrel Bisulfate 75 MG Tablet PO (10:05)
[2023-09-29] MEDS: Lisinopril 5 MG Tablet PO (10:05)
[2023-09-29] MEDS: Ergocalciferol 1.25 MG (50, 000 UNIT) Capsule PO (10:10)
--- NOTE | 2023-09-29 12:15 | PN.ORTHO_ITS ---
Subjective Subjective Patient is s/p left total knee arthroplasty with Dr. Hu 09/28/2023. Patient resting comfortably in bed. Rates pain 2/ 10 at rest. With movement 7/10. States taking Tylenol and oxycodone as needed and ice help to relieve pain. Patient has been up with therapy. Walking with the assit of a walker. Afebrile, no chest pain, shortness of breath, negative calf pain/ erythema, and no other signs of DVT. Objective Data Objective Data Vital Signs: Vital Signs Temp Pulse Resp BP Pulse Ox O2 Del Method O2 Flow Rate 98.1 F 70 18 115/87 H 98 Room Air 4 09/29/23 07:26 09/29/23 10:05 09/29/23 07:26 09/29/23 07:26 09/29/23 07:26 09/29/23 07:26 09/28/23 14:30 Oxygen Flow Rate (L/min) 4 Oxygen Delivery Method Room Air Weight: 98.5 kg Body Mass Index (BMI) 29.4 Intake & Output: Intake and Output for Last 24 Hours 09/27/23 09/28/23 09/29/23 23:59 23:59 23:59 Intake Total 4137.75 / 4717.75 1720 / 1720 Output Total 500 / 575 625 / 625 Balance 3637.75 / 4142.75 1095 / 1095 Lab / Micro Data 09/29/23 06:58 09/29/23 06:58 Labs: Laboratory Results - last 24 hr 09/29/23 06:58: WBC 7.8, RBC 4.05 L, Hgb 11.7 L, Hct 36.4 L, MCV 89.9, MCH 28.9, MCHC 32.1, RDW Std Deviation 55.6 H, RDW Coeff of Marvin 16.7 H, Plt Count 193, MPV 9.8, Sodium 140, Potassium 4.5, Chloride 111 H, Carbon Dioxide 26.0, Anion Gap 3 L, BUN 20 H, Creatinine 0.89, Estim Creat Clear Calc 71.45, Est GFR (MDRD) Af Amer 105, Est GFR (MDRD) Non-Af 87, BUN/Creatinine Ratio 22.4 H, Glucose 101, Calcium 8.9 Micro: Microbiology 09/08/23 12:36 Swab (Method) Nasal Screen MRSA/MSSA - Final Radiography Diagnostic Testing: Radiology Impression Knee X-Ray 09/28/23 13:10 IMPRESSION: Status post total knee replacement. There is good alignment. Postoperative soft tissue changes. Electronically Signed: Jared Lang MD at 13:43 EST , Physical Exam Narrative Patient resting comfortably in bed No signs of acute distress Satting well on room air Limb is warm to touch, Sensation intact throughout entire lower extremity, including saphenous, sural, superficial and deep peroneal, and tibial distribution. DP/PT pulses bounding. Dorsiflexion plantarflexion strength 5/5 Dressing clear dry intact Calf nontender to palpation, no erythema, no edema. Negative Homans Assessment & Plan Assessment/Plan (1) S/P total knee arthroplasty: PLAN: Plan 1. Will continue PT today. Weightbearing as tolerated 2. plan for discharge this afternoon following PT 3. Patient will follow up for post op appointment as previously scheduled 2 weeks postoperatively 4. Patient has outpatient PT appointment as previously scheduled to begin this week 5. no acute reactive leukocytosis 6. H/H 11.7/36.4: post operavtive anemia secondary to acute blood loss intraoperatively. Patient is asymptomatic at this time. No intraoperative complications. will continue to monitor. no acute interventions. Should follow- up with primary care if symptomatic within the next week 7. DVT prophylaxis : 81 mg aspirin twice daily x 4 weeks he is also to resume his Plavix. 8. Pain control: patient instructed to take tylenol 500mg 2 tablets TID. and oxycodone 1-2 tablets every 4-6 hours only as needed for pain control. 9. ok to remove post op dressing. post op day 5
--- NOTE | 2023-09-29 12:23 | DCINST_ITS ---
Discharge Instructions Diet Discharge Diet: No restrictions Activity Discharge Activity: Return to Normal Activity Weight Bearing Status: Weight bearing as tolerated Dressing / Incision Call your doctor if your incision/area has: Continuous Slow Oozing, Sudden Increased Bleeding, Increased Pain/ Swelling, Increased Redness, Foul Smelling Discharge and Swelling at the incision site Call your doctor if you observe: Fever of 101 or Higher, Inability to have a bowel movement, Shortness of breath, Chest pain and Calf discomfort Remove Dressing in: 5 days Cleanse incision/area with: Soap & Water and Keep Dressing Clean & Dry Follow Up Care When: Follow-up in office as previously scheduled 2 weeks postop. Test Results: Test results from this visit will be discussed in further detail at your follow- up appointment, if applicable. Discharge Plan Admission Admit Date/Time: 09/28/23 13:42 Attending Provider: Darrion Hu Primary Care Provider: Kathleen Wolfe Consulting Providers: Kunal Pittman Discharge Orders/Prescriptions Prescriptions: New aspirin 81 mg Tablet,Chewable 81 mg PO BIDCM 30 Days Qty: 60 0RF acetaminophen 500 mg Tablet 1,000 mg PO Q8 Qty: 180 0RF oxycodone 5 mg Tablet 5 - 10 mg PO .q4-6hrs prn PRN (Reason: Pain Score 4-10) 7 Days Qty: 60 0RF sennosides-docusate sodium [Stool Softener-Stimulant Laxat] 8.6-50 mg Tablet 2 tab PO BID Qty: 10 0RF Continued tamsulosin 0.4 mg capsule 0.4 mg PO BID 30 Days Qty: 60 finasteride 5 mg tablet 5 mg PO DAILY montelukast 10 mg tablet 10 mg PO QPM omeprazole 40 mg capsule,delayed release(DR/EC) 40 mg PO DAILY nitroglycerin 0.4 mg tablet, sublingual 0.4 mg sublingual Q5M PRN (Reason: Chest Pain) Qty: 25 3RF clopidogrel 75 mg tablet 75 mg PO DAILY Qty: 90 3RF Patient Comments: 5 DAYS PRIOR TO PROCEDURE STOP MED polyethylene glycol 3350 [Miralax] 17 gram/dose powder 17 g PO .twice weekly cholecalciferol (vitamin D3) 1,250 mcg (50,000 unit) capsule 1,250 mcg PO .2 TIMES WEEKLY acetaminophen 500 mg Tablet 1,000 mg PO Q8 PRN (Reason: pain) cetirizine [All Day Allergy (cetirizine)] 10 mg tablet 10 mg PO DAILY terbinafine HCl 250 mg tablet 250 mg PO DAILY atorvastatin 80 mg tablet 80 mg PO QHS lisinopril 5 mg tablet 5 mg PO DAILY Qty: 90 4RF Hold Instructions: Order Changed metoprolol tartrate 25 mg tablet 25 mg PO BID Qty: 180 3RF Discontinued aspirin 81 mg Tablet,Chewable 81 mg PO DAILY Referrals / Follow Up: Kathleen Wolfe DO [Primary Care Provider] -
--- NOTE | 2023-09-29 12:47 | CASEMGMT ---
VIOLETA CUEVA Assessment: Face to Face with pt for initial transition planning/care coordination assessment. RN ANAY introduced self and role at [facility], pt voices understanding and consents to assessment. Pt is A&O x4 and answers all questions appropriately at this time. Pt sitting up in chair in no distress. Care providers, pharmacy, and demographics verified/updated. Admitting Dx: TKR PCP:Yaneth Specialists:Fritz, ortho; GURDEEP, cardio; Oscar, uro; Russell, derm; Isckarus, onc Preferred Pharmacy: [facility] Insurance: [employer] [facility] Prescription Benefit: yes LNOK: Vanessa Catherine, Living Arrangements: Pt lives with in a two story home with 2 steps to enter. Pt reports being I in ADL's prior to surgery. Pt denies concerns at home. Transportation: Pt drives self and denies concerns with transportation. Pt or friends will provide transport for pt until he can drive again. DME:grab bars in walk in shower, shower chair, stair lift to 2nd floor, FWW, cane, comfort height commode HHC/SNF: Denies hx of Pt states no concerns with going home at time of dc after much discussion of all available options at hi. Pt dissatisfied with therapy services received this date as he states it was not therapy. Discussed with him the importance of the therapy evals. Pt discussed many scenarios of what if when he gets home, reviewed possible options with him such as calling Dr. Hu's office or calling 911. Pt has outpt therapy set up at [facility]. Pt states no further concerns/needs. CM to follow. Advised pt to ask CM if any further question/concerns/needs arise, voices understanding. Pt Goal: Home with outpt therapy already set up Plan: Home with outpt therapy already set up
[2023-09-29 13:35] VITALS: BP 121/63; PULSE 62; RESP 18; TEMP 36.7; O2SAT 100
--- NOTE | 2023-09-29 15:21 | CASEMGMT ---
Met with patient to complete HERNANDEZ form. HERNANDEZ form explained to patient who voiced understanding and signed form. Original form placed in pt?s chart and copy provided to patient. Bibiana Bacon, Discharge Planning Asst
[2023-09-29 17:13] VITALS: BP 125/57; PULSE 80; RESP 18; TEMP 36.7; O2SAT 99
== END 2023-09-29 17:35 | disposition home or self-care (01) ==
LOC: MS3 09-29 09:12 → SDC 09-30 13:10
PROVIDERS: Anesthesiology; Admitting Provider Orthopaedic Surgery; PCP Family Medicine; Referring Provider Orthopaedic Surgery; Visit Provider Orthopaedic Surgery
PROC: 0SRD0JZ Replacement of Left Knee Joint with Synthetic Substitute, Open Approach (ICD-10-PCS; CPT 27447; principal; 2023-09-28 09:30)
DX: M17.12 Unilateral primary osteoarthritis, left knee (principal); K21.9 Gastro-esophageal reflux disease without esophagitis; E78.00 Pure hypercholesterolemia, unspecified; I10 Essential (primary) hypertension; Z86.718 Personal history of other venous thrombosis and embolism; Z79.899 Other long term (current) drug therapy; Z79.82 Long term (current) use of aspirin; Z79.02 Long term (current) use of antithrombotics/antiplatelets; I25.10 Atherosclerotic heart disease of native coronary artery without angina pectoris; Z86.2 Personal history of diseases of the blood and blood-forming organs and certain disorders involving the immune mechanism
CPT/HCPCS: 27447; 01402; 64447; S2900; 36415; 73560; 80048; 80076; 82962; 83036; 83735; 85027; 85610; 85730; 87081; 88305; 88311; 94668; 97162; 97166; 99221; C1776; J7120; A4216; G0378; J3475

== ENCOUNTER → 2023-10-08 | Outpatient (CLI) | payer MEDICARE, SELFPAY ==
--- NOTE | 2023-10-08 12:29 | VDLE_ITS ---
Reason For Study: pain RIGHT LEFT CFV is compressible, spontaneous, phasic, GSV is normal. competent and demonstrates normal CFV is compressible, spontaneous, phasic, augmentation. competent, and demonstrates normal Procedure augmentation. This is a venous duplex using B-mode, color FV is compressible, spontaneous, phasic, flow and spectral Doppler. competent and demonstrates normal Exam performed in department. augmentation. The exam was diagnostic. POP V is compressible, spontaneous, phasic, A preliminary report was called and/or faxed competent and demonstrates normal to Dr. Hu. augmentation. T/P Trunk is compressible. PTV is compressible. LT PerV is compressible. VL/Venous Duplex US, Unilateral Interpretation Summary Deep veins of the left lower extremity are patent and compressible segmentally. There is no evidence of left lower extremity deep vein thrombosis. The left great saphenous vein mariano ears patent and compressible segmentally. Ordering Physician: Darrion Hu Performed By: Colby Wu RVT
[2023-10-08 13:37] LABS: Erythrocyte Sedimentation Rate 7 mm/hr (0-20)
[2023-10-08 13:38] LABS: Absolute Lymphocyte Count 1.41 X10^3/uL (0.83-4.51); Absolute Neutrophil Count 5.4 X10^3/uL (2.0-7.7); Basophil# 0.05 X10^3/uL; Basophil% 0.6 % (0-1); Eosinophil# 0.12 X10^3/uL; Eosinophils% 1.5 % (0-5); Hematocrit 31.1 % (40-54); Lymphocyte # 1.41 X10^3/ul (0.83-4.51); Lymphocyte % 17.5 % (19-41); Mean Corp Hgb Conc 32.2 g/dL (32-36); Mean Corpuscular Hgb 28.9 pg (27.0-32.0); Mean Corpuscular Volume 89.9 fL (80-94); Mean Platelet Vol. 8.9 fl (6.2-12.0); Monocyte# 0.98 X10^3/uL; Monocyte% 12.1 % (0-10); NRBC Flagged by Analyzer 0 % (0-5); Neutrophil # 5.42 X10^3/uL (2.7-7.7); Neutrophil % 67.1 % (47-70); Platelet Count 346 K/mm3 (150-450); RBC Distribution Width CV 15.9 % (11.6-14.6); RBC Distribution Width SD 52.4 fl (35.1-43.9); Red Blood Count 3.46 M/mm3 (4.6-6.2); White Blood Count 8.1 K/mm3 (4.4-11.0)
== END | disposition home or self-care (01) ==
PROVIDERS: PCP Family Medicine; Referring Provider Orthopaedic Surgery; Visit Provider Orthopaedic Surgery
DX: M79.662 Pain in left lower leg (principal); Z47.1 Aftercare following joint replacement surgery
CPT/HCPCS: 36415; 85025; 85652; 86140; 93971

== ENCOUNTER → 2023-10-15 | Outpatient (CLI) | payer MEDICARE, SELFPAY ==
--- OUTSIDE RECORDS SUMMARY | 2023-10-15 11:02 | XMS RPT_ITS | CCD ---
Author Name Unknown Address [address] [place] [address] Organization [facility] Care Team Providers Care Automotive Upholsterer Name Role Phone Kinga Lr Unavailable Unavailable Merle Arias Unavailable Unavailable Bibiana Thomas RN Unavailable Unavailable Benito Torres Unavailable Unavailable Jacobo MCDANIEL, Ute Hammond Unavailable [phone] Kinga Lr Unavailable Unavailable Merle Arias Unavailable Unavailable AVERY TRONCOSO DO Primary Care Physician AVERY TRONCOSO DO Primary Care Unavailable AVERY TRONCOSO DO Attending Unavailable JOSE M NUNN Attending Unavailable JOSE M NUNN Referring Unavailable AVERY TRONCOSO DO Primary Care Unavailable AVERY TRONCOSO DO Primary Care Unavailable ALLEGRA VORA PA-C Attending Unavailable AVERY TRONCOSO DO Primary Care Unavailable AVERY TRONCOSO DO Attending Unavailable ALISTAIR LIN Attending Kassandra vailable AVERY TRONCOSO DO Primary Care Unavailable AVERY TRONCOSO DO Primary Care Unavailable NILTON MUNROE PA-C Attending Unavailable AVERY TRONCOSO DO Attending Unavailable AVERY TRONCOSO DO Primary Care Unavailable Medications Current Medications Medication Drug Class(es) Dates Sig (Normalized) Sig (Original) Albuterol (3 sources) beta2-Adrenergic Agonist Start: 10-02-2021 take 2 puff(s) by inhalation every six hours as needed for wheezing Ventolin HFA MDI (90 mcg/inh) inhalation aerosol 2 puff(s), Inhalation, q6h, PRN as needed for wheezing, formulary substitution allowed, # 3 EA, 3 Refill(s), Pharmacy: [facility]/pharmacy #[id number], Seasonal allergies Dry cough, 181.5, cm, 08/27/21 10:40:00 EST, Height, kg, 08/27/21 10:40:00 EST, Dosing Weight Start Date: 10/02/21 Status: Ordered Completed/Discontinued Medications Medication Drug Class(es) Dates Sig (Normalized) Sig (Original) acetaminophen 325 mg / HYDROcodone bitartrate 5 mg oral tablet (10 sources) Opioid Agonist Start: 10-22-2016 End: 07-13-2017 HYDROCODONE-ACETA MINOPHEN 5-325 MG TABS As Needed HYDROCODONE-ACETA MINOPHEN [id number] Dragan Mackenzie MD meloxicam 15 mg oral tablet (14 sources) Nonsteroidal Anti-inflammatory Drug Start: 05-13-2016 End: 10-03-2016 take 1 tablet by mouth once daily MOBIC 15 MG TABS One tablet by mouth daily MELOXICAM [id number] Ute Centeno RN ticagrelor 90 mg oral tablet (7 sources) Start: 10-03-2016 take 1 tablet by mouth twice daily BRILINTA 90 MG TABS One tablet by mouth twice daily TICAGRELOR [id number] Dragan Mackenzie MD Problems Active Problems Problem Classification Problem Date Documented Da te Episodic/Chronic Cardiac dysrhythmias (7 sources) Ventricular premature depolarization; Translations: [Ventricular premature depolarization] Onset: 05-15-2016 05-15-2016 Chronic Conduction disorders (7 sources) Right bundle branch block; Translations: [Unspecified right bundle-branch block] Onset: 05-13-2016 05-13-2016 Chronic Coronary atherosclerosis and other heart disease (19 sources) Coronary arteriosclerosis; Translations: [Atherosclerotic heart disease of teller coronary artery without angina pectoris] Onset: 01-19-2017 01-19-2017 Chronic Disorders of lipid metabolism (13 sources) Hyperlipidemia; Translations: [Hyperlipidemia, unspecified] Onset: 02-27-2017 02-27-2017 Chronic Essential hypertension (14 sources) Hypertensive disorder; Translations: [Essential (primary) hypertension] Onset: 02-27-2017 02-27-2017 Chronic Gastrointestinal hemorrhage (4 sources) Hematochezia 10-22-2021 Episodic Hyperplasia of prostate (4 sources) Benign prostatic hyperplasia 04-18-2022 Chronic Immunizations and screening for infectious disease (1 source) Encounter for screening for other viral diseases; Translations: [Encounter for screening for other viral diseases] Episodic Malaise and fatigue (5 sources) Fatigue 08-27-2021 Episodic Mood disorders (4 sources) Depressive disorder 02-14-2022 Chronic Non-Hodgkin`s lymphoma (5 sources) 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 Nonspecific chest pain (18 sources) Chest pain; Translations: [Chest pain, unspecified] Onset: 09-19-2016 Resolved: 02-27-2017 02-27-2017 Episodic Nutritional deficiencies (5 sources) Vitamin D deficiency; Translations: [Vitamin D deficiency, unspecified] 04-18-2022 Chronic Osteoarthritis (11 sources) Arthritis; Translations: [Osteoarthritis] 03-26-2015 Chronic Other aftercare (1 source) Aftercare following joint replacement surgery; Translations: [Aftercare following joint replacement surgery] Chronic Other and unspecified benign neoplasm (5 sources) Polyp of colon 06-07-2015 Episodic Other circulatory disease (5 sources) Vascular calcification 02-17-2020 Episodic Other connective tissue disease (1 source) Artificial knee joint present; Translations: [Presence of right artificial knee joint] Chronic Other ear and sense organ disorders (5 sources) Hearing loss of left ear 04-02-2021 Chronic Other ear and sense organ disorders (5 sources) Otitis externa 05-07-2021 Chronic Other ear and sense organ disorders (3 sources) Impacted cerumen 09-17-2022 Episodic Other gastrointestinal disorders (5 sources) Constipation 06-10-2019 Episodic Other gastrointestinal disorders (2 sources) Alteration in bowel elimination 12-17-2022 Episodic Other lower respiratory disease (5 sources) Dry cough 07-20-2020 Episodic Other lower respiratory disease (5 sources) Imaging of lung abnormal 11-09-2019 Episodic Other non-traumatic joint disorders (2 sources) Knee pain 03-05-2023 Episodic Other nutritional; endocrine; and metabolic disorders (3 sources) Overweight in adulthood with body mass index of 25 or more but less than 30 09-17-2022 Episodic Other screening for suspected conditions (not mental disorders or infectious disease) (3 sources) Encounter for screening for malignant neoplasm of prostate; Translations: [Screening for malignant neoplasm done] Episodic Other upper respiratory disease (5 sources) Seasonal allergy 07-06-2019 Chronic Other upper respiratory disease (5 sources) Throat irritation 11-09-2019 Episodic Other upper respiratory infections (5 sources) Posterior rhinorrhea 08-27-2021 Episodic Otitis media and related conditions (5 sources) Otitis media 06-04-2021 Episodic Pneumonia (except that caused by tuberculosis or sexually transmitted disease) (5 sources) Pneumonia 11-09-2019 Episodic Pulmonary heart disease (5 sources) Pulmonary embolism 06-07-2015 Episodic Residual codes; unclassified (5 sources) Auditory hallucinations 01-12-2020 Episodic Residual codes; unclassified (5 sources) Requires vaccination 06-04-2021 Episodic Residual codes; unclassified (4 sources) Screening finding 02-14-2022 Episodic Residual codes; unclassified (2 sources) Preoperative state 03-05-2023 Episodic Thyroid disorders (5 sources) Thyroid nodule 10-23-2020 Chronic Unclassified (5 sources) Placement of stent in coronary artery ; Translations: [Presence of other cardiac implants and grafts] Onset: 02-27-2017 02-27-2017 Unclassified (5 sources) Blood clot (morphologic abnormality) 04-16-2014 Unclassified (20 sources) Patient encounter status 06-04-2021 Unclassified (4 sources) Vaccination needed 02-14-2022 Unclassified (3 sources) Influenza vaccination status 09-17-2022 Unclassified (3 sources) Never used tobacco 09-17-2022 Unclassified (3 sources) Pain of knee region 09-17-2022 Viral infection (5 sources) Virus present 08-07-2020 Episodic Past or Other Problems Problem Classification Problem Date Documented Da te Episodic/Chronic Other nutritional; endocrine; and metabolic disorders (7 sources) Body mass index (BMI) 27.0-27.9, adult; Translations: [Body mass index (BMI) 27.0-27.9, adult] Onset: 01-19-2017 01-19-2017 Episodic Spondylosis; intervertebral disc disorders; other back problems (14 sources) Neck pain; Translations: [Cervicalgia] Onset: 01-19-2017 Resolved: 02-27-2017 01-19-2017 Episodic Syncope (7 sources) Syncope and collapse; Translations: [Syncope and collapse] Onset: 05-13-2016 05-13-2016 Episodic Unclassified (10 sources) Percutaneous transluminal coronary angioplasty ; Translations: [Presence of coronary angioplasty implant and graft] Onset: 10-02-2016 Resolved: 02-27-2017 02-27-2017 Results Test Name Value Interpretation Reference Range Facil ity Vital Signs Date Time Vital Sign Value Performing Clinician Anne abdalla 07-13-2017 15:16-0400 Heart rate 70 /min [facility] Work Phone: 07-13-2017 15:01-0400 BMI (Body Mass Index) 25.99 kg/m2 [facility] Work Phone: 07-13-2017 15:01-0400 BP Diastolic 60 mm[Hg] [facility] Work Phone: 07-13-2017 15:01-0400 BP Systolic 116 mm[Hg] [facility] Work Phone: 07-13-2017 15:01-0400 Height 185.42 cm [facility] Work Phone: 07-13-2017 15:01-0400 Pulse (Heart Rate) 72 /min [facility] Work Phone: 07-13-2017 15:01-0400 Respiratory Rate 18 /min [facility] Work Phone: 07-13-2017 15:01-0400 Weight 89.36 kg [facility] Work Phone: 03-04-2017 13:32-0400 BMI (Body Mass Index) 26.89 kg/m2 [facility] Work Phone: 03-04-2017 13:32-0400 Body weight 92.44 kg [facility] Work Phone: 03-04-2017 13:32-0400 BP Diastolic 72 mm[Hg] [facility] Work Phone: 03-04-2017 13:32-0400 BP Systolic 120 mm[Hg] Merle Arias [facility] Work Phone: 03-04-2017 13:32-0400 Height 185.42 cm Merle Juana [facility] Work Phone: 03-04-2017 13:32-0400 Pulse (Heart Rate) 74 /min Merle Danay [facility] Work Phone: 03-04-2017 13:32-0400 Respiratory Rate 18 /min [facility] Ju[facility] Work Phone: 03-04-2017 13:32-0400 Weight 92.44 kg [facility] Work Phone: 01-19-2017 10:12-0400 BMI (Body Mass Index) 27.2 kg/m2 Bibiana Thomas RN [facility] Work Phone: 01-19-2017 10:12-0400 BP Diastolic 70 mm[Hg] Bibiana Thomas RN [facility] Work Phone: 01-19-2017 10:12-0400 BP Diastolic 66 mm[Hg] Bibiana Thomas RN [facility] Work Phone: 01-19-2017 10:12-0400 BP Systolic 124 mm[Hg] Bibiana Thomas RN [facility] Work Phone: 01-19-2017 10:12-0400 BP Systolic 122 mm[Hg] Bibiana Thomas RN [facility] Work Phone: 01-19-2017 10:12-0400 BP Systolic 118 mm[Hg] Bibiana Thomas RN [facility] Work Phone: 01-19-2017 10:12-0400 Height 185.42 cm Bibiana Thomas RN [facility] Work Phone: 01-19-2017 10:12-0400 Pulse (Heart Rate) 66 /min Bibiana Thomas RN [facility] Work Phone: 01-19-2017 10:12-0400 Pulse Oximetry 98 % Bibiana Thomas RN [facility] Work Phone: 01-19-2017 10:12-0400 Respiratory Rate 18 /min Bibiana Thomas RN [facility] Work Phone: 01-19-2017 10:12-0400 Weight 93.53 kg Bibiana Thomas RN [facility] Work Phone: 10-22-2016 11:04-0500 BSA (Body Surface Area) 2.23 m2 Bibiana Thomas RN [facility] Work Phone: 09-19-2016 13:49-0500 Heart rate 84 /min Merle Cortezmadhav [facility] Work Phone: 09-19-2016 13:33-0500 BP Diastolic 82 mm[Hg] Bibiana Thomas RN [facility] Work Phone: 09-19-2016 13:33-0500 BP Systolic 144 mm[Hg] Bibiana Thomas RN [facility] Work Phone: 09-19-2016 13:33-0500 Pulse (Heart Rate) 88 /min Bibiana Thomas RN [facility] Work Phone: Encounters Encounter Date Encounter Type Care Provider Facility Start: 09-30-2023 ambulatory AVERY TRONCOSO DO Fac ility:B Start: 07-01-2023 End: 07-02-2023 ambulatory AVERY TRONCOSO DO Facility:B Start: 07-01-2023 End: 07-01-2023 Patient encounter procedure AVERY TRONCOSO DO [facility] Start: 07-01-2023 End: 07-01-2023 Well adult monitoring check done AVERY TRONCOSO DO [facility] Start: 04-13-2023 End: 04-14-2023 ambulatory AVERY TRONCOSO DO Facility:B Start: 04-08-2023 End: 06-02-2023 ambulatory JOSE M GARCIA Facility:B Start: 04-08-2023 End: 06-02-2023 Admission to same day surgery center JOSE M GARCIA [facility] Start: 03-06-2023 End: 03-07-2023 ambulatory AVERY TRONCOSO DO Facility:B Start: 12-17-2022 End: 12-22-2022 ambulatory AVERY Encinas KARYNA DO Facility:B Start: 11-03-2022 End: 11-04-2022 ambulatory ALISTAIR MCLAUGHLIN SENIOR DIRECTOR CREATIVE SERVICES-ELECTRONICS TECHNICIAN Facility:B Start: 11-03-2022 End: 11-03-2022 Patient encounter procedure ALISTAIR MCLAUGLHIN SENIOR DIRECTOR CREATIVE SERVICES-ELECTRONICS TECHNICIAN [facility] Start: 04-25-2022 End: 04-25-2022 Patient encounter procedure AVERY Encinas KARYNA DO [facility] Start: 08-27-2021 End: 08-27-2021 Patient encounter procedure AVERY TRONCOSO DO [facility] Procedures Date Procedure Procedure Detail Performing Clinician Start: 04-05-2023 Arthroplasty of knee EYAD TRONCOSO DO Plan of Treatment Date Care Activity Detail Author Start: 03-24-2018 End: 03-24-2018 Appointment Appointment [facility] Work Phone: Start: 07-13-2017 End: 07-13-2017 Follow Up Appt 6 months Follow Up Appt 6 months [facility] Work Phone: Start: 07-13-2017 End: 07-13-2017 Nuclear stress test -exercise Nuclear stress test -exercise [facility] Work Phone: Start: 07-13-2017 End: 07-13-2017 PFM PFM [facility] Work Phone: Start: 07-13-2017 End: 07-13-2017 Follow Up Appt 6 months Follow Up Appt 6 months [facility] Work Phone: Start: 07-13-2017 End: 07-13-2017 Nuclear stress test -exercise Nuclear stress test -exercise [facility] Work Phone: Start: 07-13-2017 End: 07-13-2017 PFM PFM [facility] Work Phone: Start: 06-29-2017 End: 06-29-2017 Appointment Appointment [facility] Work Phone: Start: 06-29-2017 End: 06-29-2017 Appointment Appointment [facility] Work Phone: Start: 03-04-2017 End: 03-04-2017 Follow Up Appt 3 months Follow Up Appt 3 months [facility] Work Phone: Start: 03-04-2017 End: 03-04-2017 MMM MMM [facility] Work Phone: Start: 03-04-2017 End: 03-04-2017 Appointment Appointment [facility] Work Phone: Start: 03-04-2017 End: 03-04-2017 Follow Up Appt 3 months Follow Up Appt 3 months [facility] Work Phone: Start: 03-04-2017 End: 03-04-2017 MMM MMM [facility] Work Phone: Start: 01-19-2017 End: 01-19-2017 Follow Up Appt 1 month Follow Up Appt 1 month [facility] Work Phone: Start: 01-19-2017 End: 01-19-2017 MMM MMM [facility] Work Phone: Start: 01-19-2017 End: 01-19-2017 Follow Up Appt 1 month Follow Up Appt 1 month [facility] Work Phone: Start: 01-19-2017 End: 01-19-2017 MMM MMM [facility] Work Phone: Start: 10-22-2016 End: 10-27-2016 [facility] [address] [place], [address] [facility] Work Phone: Start: 10-22-2016 End: 10-22-2016 Cardiovascular stress test using treadmill Treadmill stress test (no imaging) [employer] Work Phone: Start: 10-22-2016 End: 10-22-2016 Follow Up Appt 3 months Follow Up Appt 3 months [facility] Work Phone: Start: 10-22-2016 End: 10-22-2016 MMM MMM [employer] Work Phone: Start: 10-22-2016 End: 10-27-2016 Cardiac Re[facility] [address] [place], [address] [facility] Work Phone: Start: 10-22-2016 End: 10-22-2016 Cardiovascular stress test using treadmill Treadmill stress test (no imaging) [employer] Work Phone: Start: 10-22-2016 End: 10-22-2016 Follow Up Appt 3 months Follow Up Appt 3 months [facility] Work Phone: Start: 10-22-2016 End: 10-22-2016 MMM MMM [employer] Work Phone: Start: 09-19-2016 End: 09-19-2016 *BMP *BMP [employer] Work Phone: Start: 09-19-2016 End: 09-19-2016 aPTT *PTT-Partial Thromboplastin Time [employer] Work Phone: Start: 09-19-2016 End: 09-19-2016 CBC W Auto Differential panel - Blood *CBC without Diff [employer] Work Phone: Start: 09-19-2016 End: 01-16-2017 Chest x-ray X-Ray, Chest, PA & Lateral [employer] Work Phone: Start: 09-19-2016 End: 09-19-2016 Ecg routine ecg w/least 12 lds w/i&r EKG (In office) [employer] Work Phone: Start: 09-19-2016 End: 09-19-2016 Follow Up Appt 6 months Follow Up Appt 6 months [employer] Work Phone: Start: 09-19-2016 End: 09-19-2016 INR Coag RelTime (PPP) *PT/INR [employer] Work Phone: Start: 09-19-2016 End: 09-19-2016 Left Heart Cath Left Heart Cath [employer] Work Phone: Start: 09-19-2016 End: 09-19-2016 PFM PFM [employer] Work Phone: Start: 09-19-2016 End: 09-19-2016 *BMP *BMP [employer] [facility] Work Phone: Start: 09-19-2016 End: 09-19-2016 aPTT *PTT-Partial Thromboplastin Time [employer] Work Phone: Start: 09-19-2016 End: 09-19-2016 aPTT Coag (PPP) [Time] *PTT-Partial Thromboplastin Time [employer] Work Phone: Start: 09-19-2016 End: 09-19-2016 CBC W Auto Differential panel - Blood *CBC without Diff [employer] Work Phone: Start: 09-19-2016 End: 01-16-2017 Chest x-ray X-Ray, Chest, PA & Lateral [employer] Work Phone: Start: 09-19-2016 End: 09-19-2016 Coagulation factor induced.INR assay in platelet poor plasma *PT/INR [employer] Work Phone: Start: 09-19-2016 End: 09-19-2016 Electrocardiogram, complete EKG (In office) [employer] Work Phone: Start: 09-19-2016 End: 09-19-2016 Follow Up Appt 6 months Follow Up Appt 6 months [employer] Work Phone: Start: 09-19-2016 End: 09-19-2016 Left Heart Cath Left Heart Cath [facility] Work Phone: Start: 09-19-2016 End: 09-19-2016 PFM PFM [facility] Work Phone: Start: 05-15-2016 End: 05-15-2016 Ecg routine ecg w/least 12 lds w/i&r EKG (In office) [facility] Work Phone: Start: 05-15-2016 End: 05-15-2016 Follow Up Appt 6 months Follow Up Appt 6 months [facility] Work Phone: Start: 05-15-2016 End: 05-15-2016 PFM PFM [facility] Work Phone: Start: 05-15-2016 End: 05-15-2016 Electrocardiogram, complete EKG (In office) [facility] Work Phone: Start: 05-15-2016 End: 05-15-2016 Follow Up Appt 6 months Follow Up Appt 6 months [facility] Work Phone: Start: 05-15-2016 End: 05-15-2016 PFM PFM [facility] Work Phone: Immunizations Immunization Date Immunization Notes Care Provider [facility] 08-28-2022 influenza virus vaccine, unspecified formulation ALISTAIR MCLAUGHLIN [employer] [facility] 08-11-2022 COVID-19, mRNA, LNP- S, bivalent booster, PF, 30 mcg/0.3 mL dose; Translations: [[id number] COVID-19 (12y+) Bivalent Booster Vaccine PF] ALISTAIR MCLAUGHLIN [employer] [facility] 07-05-2022 tetanus toxoid, redu юлия diphtheria toxoid, and acellular pertussis vaccine, adsorbed ALISTAIR MCLAUGHLIN [employer] [facility] 07-05-2022 zoster vaccine recombinant ALISTAIR MCLAUGHLIN SENIOR DIRECTOR CREATIVE SERVICES-ELECTRONICS TECHNICIAN [facility] 02-14-2022 COVID-19, mRNA, LNP- S, PF, 100 mcg or 50 mcg dose; Translations: [Moderna COVID-19 Vaccine] AVERY TRONCOSO DO [facility] 09-03-2021 COVID-19, mRNA, LNP- S, PF, 100 mcg or 50 mcg dose; Translations: [Moderna COVID-19 Vaccine] AEVRY KARYNA DO [facility] 07-30-2021 influenza virus vaccine, unspecified formulation AVERY TRONCOSO DO [facility] 06-04-2021 pneumococcal polysaccharide vaccine, 23 valent; Translations: [Pneumovax 23] AVERY TRONCOSO DO [facility] 12-11-2020 COVID-19, mRNA, LNP- S, PF, 100 mcg/ 0.5 mL dose; Translations: [Moderna COVID-19 Vaccine] AVERY TRONCOSO DO [facility] 11-15-2020 SARS-CoV-2 (COVID-19 ) mRNA-1273 vaccine AVERY KARYNA DO [facility] 07-20-2020 influenza, injectabl e, quadrivalent, preservative free; Translations: [Fluarix PF Quadrivalent ] AVERY TRONCOSO DO [facility] 08-24-2019 influenza virus vaccine, unspecified formulation AVERY TRONCOSO DO [facility] 07-08-2018 influenza virus vaccine, unspecified formulation AVERY TRONCOSO DO [facility] 09-17-2017 pneumococcal conjuga te vaccine, 13 valent AVERY TRONCOSO DO [facility] 08-12-2017 influenza virus vaccine, unspecified formulation AVERY TRONCOSO DO [facility] 07-19-2017 influenza virus vaccine, unspecified formulation AVERY TRONCOSO DO [facility] 07-19-2016 influenza virus vaccine, unspecified formulation AVERY TRONCOSO DO [facility] 09-11-2015 influenza virus vaccine, unspecified formulation AVERY TRONCOSO DO [facility] 10-19-2014 zoster vaccine, live AVERY TRONCOSO DO [facility] 09-17-2014 zoster vaccine, live AVERY EGANY DO [facility] Payers Date Payer Category Payer Unknown [id number] 1940 Unknown [id number] 2.16.8 [id number] 1940 Unknown [id number] 2.16.8 [id number] 1940 Unknown [id number] 2.16.8 [id number] 1941 Unknown [id number] 2.16.8 [id number] 1941 Unknown [id number] 2.16.8 [id number] 1941 Unknown [id number] 2.16.8 [id number] 1940 Unknown [id number] 2.16.8 [id number] Social History Date Type Detail Facility Start: 01-12-2020 Never smoked t obacco (finding) [facility] Sex Assigned At Male [facility] Evaluation + Plan note Note Date & Type Note Facility Evaluation + Plan note Future Appointments Appointment Date:09/03/2021 02:00:00 PM Scheduled Provider: Location:[facility] Appointment Type:COVID AMB VACCINE Appointment Date:01/21/2022 02:00:00 PM Scheduled Provider:AVERY TRONCOSO DO Location:[facility] Appointment Type:[facility] Evaluation + Plan note Note Date & Type Note Facility Evaluation + Plan note Future Appointments Appointment Date:06/18/2022 09:00:00 AM Scheduled Provider:AVERY TRONCOSO DO Location:[facility] Appointment Type:[facility] Evaluation + Plan note Note Date & Type Note Facility Evaluation + Plan note Future Appointments Appointment Date:01/06/2023 10:00:00 AM Scheduled Provider:AVERY TRONCOSO DO Location:[facility] Appointment Type:[facility] Evaluation + Plan note Note Date & Type Note Facility Evaluation + Plan note Future Appointments Appointment Date:06/25/2023 11:30:00 AM Scheduled Provider:AVERY TRONCOSO DO Location:[facility] Appointment Type:[facility] Evaluation + Plan note Note Date & Type Note Facility Evaluation + Plan note Future Appointments Appointment Date:09/24/2023 11:30:00 AM Scheduled Provider:AVERY TRONCOSO DO Location:[facility] Appointment Type:PC [facility] Hospital course Narrative Note Date & Type Note Facility Hospital course Narrative No data available for this section [facility] Hospital Discharge instructions Note Date & Type Note Facility Hospital Discharge instructions No data available for this section [facility] Progress note Note Date & Type Note Facility Progress note No data available for this section [facility] Summary Purpose Family History No Family History Records Found Advance Directives No Advanced Directives Records Found Additional Source Comments Care Team (unrecognized sect ion and content) Care Team Personnel Name: HEIDY SHETH MD Member Role: Enterprise Resource Planning Consultant Address: Address: [facility] [address] [place] [address]- [place] Name: RUEPSH DALE MD Member Role: Oncologist Address: Address: [facility] [place] [address]- [place] Name: MANI WASHINGTON MD Position: Physician Med Service: Admitting Member Role: Email Marketing Specialist Address: Address: [address] [facility] [address] [place] [address]- Name: AVERY TRONCOSO DO Position: P4 Physician - Primary Care Med Service: Active Provider Member Role: Primary Care Physician Address: Address: [address] [facility] [place], [place] [address] Name: DRAGAN MACKENZIE MD Member Role: [employer] Address: Address: [address] [facility] [address] [place], [place] [address] Name: KIKI ZUÑIGA MD Position: P3 Physician - Urologist Med Service: Admitting Member Role: Urologist Address: Address: [address] [facility] [address] [place] [address]- Care Team Related Persons Name: SANDI RAYA Address: Home [address] [place], [place] [id number] Care Team Personnel Name: HEIDY SHETH MD Member Role: Enterprise Resource Planning Consultant Address: Address: [facility] [address] [place] [address]- Name: RUPESH DALE MD Member Role: Oncologist Address: Address: [address] [place] [address]- Name: MANI WASHINGTON MD Position: Physician Member Role: Email Marketing Specialist Address: Address: [address] [facility] [place] [address] [place] [address]- Name: CARLOS ENRIQUE LEACH Member Role: Microwave Radio Technician Name: AVERY TRONCOSO DO Position: P4 Physician - Primary Care Member Role: Primary Care Physician Address: Address: [address] [place] [id number]- Name: DRAGAN MACKENZIE MD Member Role: [employer] Address: Address: [address] [facility] [address] [place] [address]- Name: KIKI ZUÑIGA MD Position: P3 Physician - Urologist Member Role: Urologist Address: Address: [address] [place], [place] [id number]- Care Team Related Persons Name: SANDI RAYA Address: Home [address] [place], [place] [phone] Patient Care team informatio n (unrecognized section and content) Care Team Personnel Name: HEIDY SHETH MD Member Role: Enterprise Resource Planning Consultant Address: Address: [facility] [address] [place] [address]- Name: RUPESH DALE MD Member Role: Oncologist Address: Address: [address] [place] [address]- Name: MANI WASHINGTON MD Position: Physician Member Role: Email Marketing Specialist Address: Address: [address] [facility] [place] [address] [place] [address]- [place] Name: CARLOS ENRIQUE LEACH Member Role: Microwave Radio Technician Name: DO [place] GRAY DO Position: P3 Physician - Orthopedics Member Role: Orthopaedist Address: Address: [address] [place] [address] [address] [place] [address] [place] Name: AVERY TRONCOSO DO Position: P4 Physician - Primary Care Member Role: Primary Care Physician Address: Address: [address] [place] [address]- Name: DRAGAN MACKENZIE MD Member Role: [employer] Address: Address: [address] [facility] [address] [place] [address]- [place] Name: KIKI ZUÑIGA MD Position: P3 Physician - Urologist Member Role: Urologist Address: Address: [address] [facility] [address] [place] [address]- Care Team Related Persons Name: SANDI RAYA Address: Home [address] [place], [place] [phone] Care Team Personnel Name: HEIDY SHETH MD Member Role: Enterprise Resource Planning Consultant Address: Address: [facility] [address] [place] [address]- Name: RUPESH DALE MD Member Role: Oncologist Address: Address: [facility] [place] [address]- Name: MANI WASHINGTON MD Position: Physician Member Role: Email Marketing Specialist Address: Address: [address] [place] [address]- [place] Name: CARLOS ENRIQUE LEACH Member Role: Microwave Radio Technician Name: DO NY GRAY DO Position: P3 Physician - Orthopedics Member Role: Orthopaedist Address: Address: [address] [place] [address] [address] [place] [address] [place] Name: AVERY TRONCOSO DO Position: P4 Physician - Primary Care Member Role: Primary Care Physician Address: Address: [address] [place] [address]- Name: DRAGAN MACKENZIE MD Member Role: [employer] Address: Address: [address] [facility] [address] [place] [address]- [place] Name: KIKI ZUÑIGA MD Position: P3 Physician - Urologist Member Role: Urologist Address: Address: [address] [facility] [address] [place] [address]- [place] Care Team Related Persons Name: SANDI RAYA Address: Home [address] [place], [place] [phone] [place] (unrecognized sect ion and content) No Status Records Found INFORMATION SOURCE (unrecogn ized section and content) FOR RECORDS PERTAINING TO PATIENTS WHO ARE OR HAVE BEEN ENROLLED IN A CHEMICAL DEPENDENCY/SUBSTANCEABUSE PROGRAM, SOME INFORMATION MAY BE OMITTED. This clinical summary was aggregated from multiple sources. Caution should be exercised in using it in the provision of clinical care. This summary normalizes information from multiple sources, and as a consequence, information in this document may materially change the coding, format and clinical context of patient data. In addition, data may be omitted in some cases. CLINICAL DECISIONS SHOULD BE BASED ON THE PRIMARY CLINICAL RECORDS. [employer] provides no warranty or guarantee of the accuracy or completeness of information in this document.
[2023-10-15 11:31] LABS: Erythrocyte Sedimentation Rate 7 mm/hr (0-20)
[2023-10-15 11:33] LABS: Absolute Neutrophil Count 5.3 X10^3/uL (2.0-7.7); Basophil# 0.04 X10^3/uL; Basophil% 0.6 % (0-1); Eosinophil# 0.07 X10^3/uL; Hematocrit 33.4 % (40-54); Hemoglobin 10.7 g/dL (13.0-16.5); Lymphocyte % 13.9 % (19-41); Mean Corpuscular Hgb 29.8 pg (27.0-32.0); Mean Platelet Vol. 8.9 fl (6.2-12.0); Monocyte# 0.74 X10^3/uL; Monocyte% 10.3 % (0-10); NRBC Flagged by Analyzer 0 % (0-5); Neutrophil # 5.26 X10^3/uL (2.7-7.7); Neutrophil % 73.4 % (47-70); Platelet Count 429 K/mm3 (150-450); RBC Distribution Width CV 16.2 % (11.6-14.6); RBC Distribution Width SD 55.5 fl (35.1-43.9); Red Blood Count 3.59 M/mm3 (4.6-6.2); White Blood Count 7.2 K/mm3 (4.4-11.0)
== END | disposition home or self-care (01) ==
LOC: LAB.FUTURE 10:27 → LAB 10:28
PROVIDERS: PCP Family Medicine; Visit Provider Orthopaedic Surgery
DX: Z47.1 Aftercare following joint replacement surgery (principal); I25.10 Atherosclerotic heart disease of native coronary artery without angina pectoris; Z95.5 Presence of coronary angioplasty implant and graft
CPT/HCPCS: 36415; 85025; 85652; 86140

== ENCOUNTER → 2023-10-21 | Outpatient (CLI) | payer MEDICARE, SELFPAY ==
[2023-10-21 13:34] LABS: Erythrocyte Sedimentation Rate 1 mm/hr (0-20)
[2023-10-21 13:36] LABS: Absolute Lymphocyte Count 2.12 X10^3/uL (0.83-4.51); Absolute Neutrophil Count 6.1 X10^3/uL (2.0-7.7); Basophil# 0.06 X10^3/uL; Basophil% 0.6 % (0-1); Eosinophil# 0.13 X10^3/uL; Eosinophils% 1.4 % (0-5); Hematocrit 36.5 % (40-54); Hemoglobin 11.6 g/dL (13.0-16.5); Lymphocyte # 2.12 X10^3/ul (0.83-4.51); Lymphocyte % 22.3 % (19-41); Mean Corp Hgb Conc 31.8 g/dL (32-36); Mean Corpuscular Hgb 28.6 pg (27.0-32.0); Mean Corpuscular Volume 90.1 fL (80-94); Mean Platelet Vol. 8.7 fl (6.2-12.0); Monocyte# 1.03 X10^3/uL; Monocyte% 10.8 % (0-10); NRBC Flagged by Analyzer 0 % (0-5); Neutrophil # 6.14 X10^3/uL (2.7-7.7); Neutrophil % 64.5 % (47-70); Platelet Count 435 K/mm3 (150-450); RBC Distribution Width CV 16.1 % (11.6-14.6); RBC Distribution Width SD 53.1 fl (35.1-43.9); Red Blood Count 4.05 M/mm3 (4.6-6.2); White Blood Count 9.5 K/mm3 (4.4-11.0)
[2023-10-21 13:52] LABS: CRP 9.64 mg/L (0.0-3.0)
== END | disposition home or self-care (01) ==
PROVIDERS: PCP Family Medicine; Referring Provider Orthopaedic Surgery; Visit Provider Orthopaedic Surgery
DX: Z47.1 Aftercare following joint replacement surgery (principal); Z79.899 Other long term (current) drug therapy
CPT/HCPCS: 36415; 85025; 85652; 86140

== ENCOUNTER → 2025-02-15 | Outpatient (CLI) | payer MEDICARE, SELFPAY ==
--- NOTE | 2025-02-15 06:26 | ECHOD_ITS ---
Reason For Study Reason For Study: CAD/ASHD Procedure This was a 2D Doppler, Color Flow transthoracic echocardiogram. Exam performed in department. Left Ventricle Normal LV size. Mild concentric left ventricular hypertrophy. The LV systolic function is normal. EF is 65 %. Stage 1 diastolic dysfunction. Right Ventricle Normal right ventricle. Atria The left atrium is moderately enlarged. Normal right atrium. Interatrial septum bows to the right. Mitral Valve Trivial mitral valve insufficiency. Tricuspid Valve Trivial tricuspid valve insufficiency. Normal pulmonary artery pressure. Aortic Valve Trisinus/trileaflet aortic valve. Focal calcification of the left coronary cusp of the aortic valve. Pulmonic Valve The pulmonic valve is not well visualized. Trivial pulmonic valve insufficiency. Great Vessels Mildly dilated aortic root. Pericardium/Pleural No pericardial effusion. MMode/2D Measurements & Calculations LVIDd: 4.9 cm IVSd: 1.2 cm Ao root diam: 4.2 cm LVIDs: 3.4 cm LVPWd: 1.2 cm RVDd: 3.7 cm FS: 29.7 % LAV(MOD-bp): 64.0 ml LVAd ap4: 35.2 cm2 SV(MOD-sp4): 67.7 ml LAV(MOD-bp) Indexed: 29.8 ml/m2 LVLd ap4: 8.7 cm SI(MOD-sp4): 31.5 ml/m2 LAV(MOD-sp2): 62.1 ml EDV(MOD-sp4): 113.0 ml LAV(MOD-sp4): 62.5 ml EDV(sp4-el): 120.5 ml LVAs ap4: 19.6 cm2 LVLs ap4: 7.3 cm ESV(MOD-sp4): 45.4 ml ESV(sp4-el): 44.7 ml EF(MOD-sp4): 59.9 % EF(sp4-el): 62.9 % SV(sp4-el): 75.8 ml LA A4 area: 21.3 cm2 LA dimension(2D): 4.2 cm RA A4 area: 17.1 cm2 TAPSE: 2.3 cm Time Measurements MV dec time: 0.24 sec Doppler Measurements & Calculations MV E max pravin: 98.8 cm/sec Lat Peak E' Pravin: 10.4 cm/sec Med Peak E' Pravin: 10.5 cm/sec MV A max pravin: 76.9 cm/sec E/E' lat: 9.5 E/E' med: 9.4 MV E/A: 1.3 Ao V2 max: 138.3 cm/sec LV V1 max: 99.3 cm/sec PA V2 max: 113.4 cm/sec Ao max P.6 mmHg LV V1 max P.9 mmHg TR max pravin: 244.8 cm/sec TR max P.0 mmHg ECHO/Echo Complete Interpretation Summary Mild concentric left ventricular hypertrophy. The LV systolic function is normal. EF is 65 %. Stage 1 diastolic dysfunction. The left atrium is moderately enlarged. Focal calcification of the left coronary cusp of the aortic valve Mildly dilated aortic root. Ordering Physician: Bayron Baxter MD Referring Physician: AVERY TRONCOSO Performed By: Leslye Alarcon RDCS
[2025-02-15 11:49] LABS: ALB/GLOB Ratio 1.7 RATIO (0.9-2.4); AST(SGOT) 23 U/L (<=37); Alanine Aminotransfer ALT/SGPT 15 U/L (<=46); Albumin, Serum 3.8 g/dL (3.4-4.8); Alkaline Phosphatase 86 U/L (40-129); Anion Gap 10 (5-15); BUN 26 mg/dL (4-19); BUN/Creat Ratio 25.9 RATIO (10-20); Calcium,Total 9.6 mg/dL (7.6-11.0); Chloride 107 mmol/L (98-108); Cholesterol 140 mg/dL (<=200); EST Glomerular Filtration Rate 75 (>60); Globulin 2.2 g/dL (2.2-4.2); Glucose 76 mg/dL (70-99); High Density Lipoprotein 74 mg/dL; Low Density Lipoprotein Calc. 54 mg/dL; Potassium 4.1 mmol/L (3.3-5.1); Protein, Total 6.1 g/dL (5.9-8.4); Sodium Level 142 mmol/L (133-145); Total Bilirubin 0.46 mg/dL (0.00-1.30); Triglycerides 58 mg/dL; Very Low Density Lipoprotein 12 mg/dL (5-40); cholesterol:hdl ratio screen 1.88
--- NOTE | 2025-02-15 15:28 | STRESSREP ---
Stress Test Report Date: 02/15/2025 Procedure: Pharmacologic stress nuclear imaging study Indications: Coronary artery disease Consent: Per the patient Procedure: The patient underwent pharmacologic (Regadenoson 0.4mg ) evaluation with a peak heart rate of 80 beats per minute (58%predicted maximal heart rate) and a peak blood pressure of 130/72 mmHg. The baseline ECG demonstrated sinus rhythm with right bundle branch block. The peak pharmacologic ECG failed to show any ischemic changes. Frequent PACs noted. There was no complaint of chest discomfort during pharmacologic infusion or recovery. The patient was injected with 14.0 millicuries of technetium 99m Cardiolite and subsequently rest SPECT Cardiolite nuclear imaging was obtained in the horizontal long, vertical long, and short axis views. The patient underwent pharmacologic (Regadenoson) evaluation. The patient was injected with 44.2 millicuries of technetium 99m Cardiolite and subsequently stress SPECT Cardiolite nuclear imaging was obtained in the horizontal long, vertical long, and short axis views. A gated Cardiolite study at peak stress was obtained. The examination was stopped secondary to completion of protocol. Rest and stress SPECT Cardiolite nuclear imaging status post realignment, normalization, and attenuation correction demonstrate no fixed or reversible perfusion defects. The reported LVEF is 37%. Impression: 1. Pharmacologic (Regadenoson) evaluation 2. Peak pharmacologic ECG with no diagnostic ischemic change. 3. Frequent PACs noted. 5. Rest and stress SPECT Cardiolite nuclear imaging demonstrate relative uniform tracer uptake and myocardial perfusion appearing within normal limits. 6. The gated Cardiolite study reports an LVEF of 37%. The EF may be underestimated because of dyssynchronous wall motion. This note was generated with [employer] software. It may contain incorrect words, spelling, and punctuation that were not noted in checking the note before signing.
== END | disposition home or self-care (01) ==
PROVIDERS: PCP Family Medicine; Referring Provider Internal Medicine Cardiovascular Disease; Visit Provider Internal Medicine Cardiovascular Disease
DX: I25.10 Atherosclerotic heart disease of native coronary artery without angina pectoris (principal); E78.5 Hyperlipidemia, unspecified; I10 Essential (primary) hypertension; R07.9 Chest pain, unspecified; R53.83 Other fatigue; Z95.5 Presence of coronary angioplasty implant and graft
CPT/HCPCS: 36415; 78452; 80053; 80061; 93017; 93306; A9500; A4216; J2785

== ENCOUNTER → 2025-06-05 | Outpatient (CLI) | payer MEDICARE, SELFPAY | END | disposition home or self-care (01) | LOC: PSN 07:31 | PROVIDERS: PCP Family Medicine; Referring Provider Nurse Practitioner Family; Visit Provider Nurse Practitioner Family | DX: I49.1 Atrial premature depolarization (principal); I25.10 Atherosclerotic heart disease of native coronary artery without angina pectoris | CPT/HCPCS: 93225; 93226 ==